=== PATIENT | male | born 1965 | race Caucasian/White ===

== ENCOUNTER 2018-04-15 13:42 | Observation (INO) | payer OTHER ==
[2018-04-15] MEDS ORDERED: HYDROmorphone INJ* 2 MG/ML CARPUJECT SYRINGE IV SLOW PU ONE (14:37)
[2018-04-15] MEDS ORDERED: Iohexol 350* (CONTRAST) 500 ML MDV IV ONE (14:44)
--- NOTE | 2018-04-15 15:24 | RAD ---
Indication: Chest pain. Single frontal view of the chest performed at 1500 hours was reviewed. No prior study is available for comparison.. No mediastinal shift is noted. Heart is of normal size and configuration. Lung alfaro appear clear. IMPRESSION: NO ACTIVE CARDIOPULMONARY DISEASE IS NOTED.
[2018-04-15 15:40] LABS: Hematocrit 31 % (42-52); Hemoglobin 9.9 g/dl (14.0-18.0); Mean Corpuscular HGB Conc 32 g/dl (31-36); Mean Corpuscular Hemoglobin 26 pg (27-31); Mean Corpuscular Volume 81 fL (80-94); Mean Platelet Volume 9.1 um3 (7.4-10.4); Platelet Count 440 10^3/ul (150-450); Red Blood Count 3.78 10^6/ul (4.00-5.40); Red Cell Distribution Width 22 % (10.5-15); White Blood Count 6.6 10^3/ul (3.5-10.8)
--- NOTE | 2018-04-15 15:55 | RAD ---
INDICATION: Chest pain. Short of breath. Evaluate for pulmonary embolus. COMPARISON: Chest x-ray 2017; CTA chest April 10, 2018; venous duplex examination April 10, 2018 TECHNIQUE: Axial source images were obtained from the thoracic inlet to the hemidiaphragms following administration of [address] angiographic technique was utilized. Coronal and sagittal reconstructed images were acquired. CHEST FINDINGS: Neck/thyroid: The visualized neck to include the thyroid appear normal. Chest wall: There are no acute abnormalities of the bony thorax or chest wall. There is no supraclavicular, infraclavicular, or axillary lymphadenopathy. Lungs : There are no pulmonary parenchymal masses or infiltrates. The pulmonary interstitium appears normal. There are no endobronchial lesions. Cardiomediastinal structures: There is no CT evidence of acute pulmonary embolic disease. The heart is normal in size. There is no pericardial effusion. There is no evidence of aortic aneurysm or dissection. There is no mediastinal or hilar adenopathy. The esophagus appears normal. Pleura : There are no pleural-based masses or effusions. Other: None. IMPRESSION: NO CT EVIDENCE OF ACUTE PULMONARY EMBOLIC DISEASE. LUNGS CLEAR.
[2018-04-15 16:04] LABS: EGFR Non-African American 87.9 (>60)
[2018-04-15 16:08] LABS: ABS Neutrophils 3.5 10^3/ul (1.5-7.7); Monocytes % 7 % (0-7)
[2018-04-15] MEDS ORDERED: oxyCODONE/Acetamin 5/325 MG* TAB PO ONE (17:09)
[2018-04-15] MEDS ORDERED: Al Hydrox/Mg Hydrox/Simet LIQ* 30 ML UDC PO PRN (17:14)
[2018-04-15] MEDS ORDERED: Magnesium Hydroxide LIQ* 30 ML UDC PO PRN (17:14)
[2018-04-15] MEDS ORDERED: Ondansetron 40 MG VIAL* 2 MG/ML 20 ML VIAL IV PRN (17:14)
[2018-04-15] MEDS ORDERED: Acetaminophen TAB* 325 MG PO PRN (17:14)
[2018-04-15] MEDS ORDERED: Albuterol 2.5 MG/3 ML NEB.SOL* (0.083%) INH PRN (17:14)
[2018-04-15] MEDS ORDERED: NS 0.9% 1000 ML* 1,000 ML IV SCH (17:15)
[2018-04-15] MEDS ORDERED: Nitroglycerin TAB 0.4 MG* 0.4 MG TAB SL PRN (17:23)
[2018-04-15] MEDS: Morphine VIAL* 4 MG/ML VIAL (1 ml vial) IV PRN ×3 (18:40→23:16)
[2018-04-15] MEDS: oxyCODONE/Acetamin 5/325 MG* TAB PO PRN (23:07)
--- NOTE | 2018-04-15 23:10 | HP ---
ADMISSION HISTORY AND PHYSICAL: DATE OF ADMISSION: 04/15/18 PATIENT OF: Dr. Ishmael Irvin. ATTENDING HOSPITALIST: Ishmael Irvin MD.* (DICTATED BY BONY STEIN) CHIEF COMPLAINT: Chest pain. HISTORY OF PRESENT ILLNESS: Mr. Alicia is a 52-year-old gentleman with past medical history significant for coronary artery disease, DVT, for which he has been treated with Lovenox as well as history of cardiac catheterization with two stents placed back in 2013, who was [place] [facility] [place] at the [facility] facility accompanied by two guards with a chief complaint of chest pain that started a few days ago. The patient notes that his chest pain was intermittent, feels more like squeezing tightness of the chest reaching up to 8/10 in severity, not associated with movement and reports no associated nausea, vomiting, diaphoresis. The patient was seen in the emergency room back on 04/10/18 with similar complaints. He also notes bilateral lower extremity swelling with recent diagnosis of right lower extremity DVT, for which he was started on Lovenox; however, it was not available at his correction facility and he presented to the ED for possible admission for treatment of DVT. Phone calls were made and verification was given to give the patient Lovenox at his correction facility, for which he was discharged back on the 04/10/18. He returned today with complaints of persistent chest pain on and off for the past few days. He has multiple risk factors including history of coronary artery disease, for which he had two stents placed after catheterization that was done in [place] back in 2013. The patient unfortunately have got no followup or any cardiac evaluation since. Given his multiple risk factors as well as his intermittent chest pain, we were asked to see the patient for evaluation and to discuss possible admission to telemetry for a cardiac workup tomorrow. At the time of admission, he notes that his chest pain has gotten better after he took some Percocet in the ED. He denies any weakness, dizziness, palpitation, headache, syncope or any other associated symptoms. PAST MEDICAL HISTORY: As mentioned above, significant for coronary artery disease, for which he had cardiac catheterization with two stents placed back in 2013. He also has history of multiple injuries to the bilateral shoulders for which he had surgery on both sides and currently has right humeral head fracture. He also has history of right lower extremity DVT, which is currently being treated with Lovenox. PAST SURGICAL HISTORY: Significant for bilateral shoulder repair as well as cardiac catheterization with two stents placement. He also has bilateral knee arthroscopies with meniscus repair in the past. CURRENT MEDICATIONS: His medications at the correction facility include: 1. Tylenol 650 mg p.o. q.6 hours p.r.n. for fever or pain. 2. Aspirin 81 mg p.o. daily. 3. Lovenox 80 mg subcu daily. 4. Omeprazole 20 mg p.o. daily. 5. I see Coumadin as current medication on his list; however, the patient denies taking any Coumadin at any time in the past few months. ALLERGIES: He is allergic to KETOROLAC. FAMILY HISTORY: Significant for coronary artery disease with history of NM in both father and uncle. SOCIAL HISTORY: The patient is a nonsmoker. Denies alcohol intake. He is originally from [facility] and currently, he is incarcerated in a correction facility. He would like to be full code. REVIEW OF SYSTEMS: See HPI, otherwise 14-point review of systems were reviewed and otherwise negative. PHYSICAL EXAMINATION GENERAL: He is a healthy-appearing, middle-aged gentleman, appears comfortable , and in no acute distress or discomfort at the time of admission. VITAL SIGNS: Revealed blood pressure of 109/64, temperature of 98.4, pulse of 75, respirations of 15, and O2 sats of 98% on room air. HEENT: Head is normocephalic, atraumatic. Sclerae anicteric. PERRLA. EOMs intact. Oropharynx is pink and moist. NECK: Supple. Trachea midline. No cervical adenopathy, thyromegaly, or JVD. LUNGS: Clear to auscultation bilaterally. HEART: Regular rate and rhythm. Normal S1 and S2 without rubs, murmurs, or gallops. BACK: With normal curvature. No CVA tenderness. ABDOMEN: Soft, nontender, and nondistended. No hernias, masses, or hepatosplenomegaly. EXTREMITIES: Without cyanosis, clubbing, or edema. There is bilateral calf tenderness noted on exam; however, the circumference of both calves appears to be equal by inspection. There is no evidence of cellulitis. There is pedal pulse bilaterally. NEUROLOGIC: He is awake, alert, and oriented x3. Neurologic exam is grossly normal. RECTAL: Exam deferred at this time. LABORATORY DATA: CBC with white count of 6000, hemoglobin 9.9, hematocrit 31, and platelets of 440. Chemistry panel with sodium of 138, potassium 4.8, chloride 104, CO2 of 26, BUN of 19, and creatinine of 0.9. His glucose is 103. LFTs essentially within normal limits. EKG repeated today and compared to a previous study on the 04/10/[address] changes or STEMI. Chest x-ray with no acute changes noted. Given his history of DVT, CTA of the chest was done and revealed no evidence of pulmonary embolism. ASSESSMENT: A 52-year-old gentleman with past medical history significant for coronary artery disease with previous cardiac catheterization and two stents placement in 2013, who returned to the emergency room with complaints of intermittent chest pain for the past few days with known history of deep vein thrombosis, for which he has been treated with subcutaneous Lovenox injection. PLAN AND RECOMMENDATIONS: 1. Chest pain. The patient has multiple risk factors including prior history of coronary artery disease, strong family history of myocardial infarction and his current history of deep vein thrombosis as well for which he has been treated and he showed no evidence of ST changes on current EKG; however, he had no cardiac workup since his cardiac catheterization back in 2013. Recommendations were for him to be admitted to telemetry for observation, trending troponins, repeat EKG in the morning. I will also obtain an echocardiogram as well as nuclear stress test to see if there was any evidence of myocardial ischemia. He appears to be stable at the time of admission and his pain was well controlled. 2. Deep vein thrombosis. We will continue the patient on his Lovenox 80 mg subcu daily. 3. Coronary artery disease. The patient is currently on aspirin 81 mg and his blood pressure appears to be stable. We will question if he needs to be started on a low dose of beta-enrique, but I would defer that at this time, definitely to consider it upon discharge if seem appropriate. 4. DVT prophylaxis. The patient is currently on Lovenox for treatment of active deep vein thrombosis. 5. Code status. He is a full code. DISPOSITION: Admit to telemetry for observation, trending troponins, transesophageal echocardiogram, and nuclear stress test in the morning to rule out acute coronary syndrome. TIME SPENT: I spent approximately 60 minutes admitting this patient with greater than 50% was spent on taking history and performing physical exam. I have discussed the case with my attending, Dr. Irvin, who agrees to plans of care. BONY STEIN [id number]/[facility] #: [id number] MTDChapin
[2018-04-16] MEDS: Morphine VIAL* 4 MG/ML VIAL (1 ml vial) IV PRN ×3 (00:59→06:48)
[2018-04-16] MEDS: oxyCODONE/Acetamin 5/325 MG* TAB PO PRN ×2 (04:44→20:53)
[2018-04-16 06:26] LABS: ABS Basophils 0.1 10^3/ul (0-0.2); ABS Eosinophils 0.3 10^3/ul (0-0.6); ABS Lymphocytes 2.3 10^3/ul (1.0-4.8); ABS Monocytes 1.1 10^3/ul (0-0.8); ABS Neutrophils 3.7 10^3/ul (1.5-7.7); ABS Nucleated RBC 0 10^3/ul; Eosinophil % 3.8 % (0-6); Hematocrit 31 % (42-52); Hemoglobin 10.1 g/dl (14.0-18.0); Lymphocyte % 30.6 % (25-47); Mean Corpuscular HGB Conc 32 g/dl (31-36); Mean Corpuscular Hemoglobin 26 pg (27-31); Mean Corpuscular Volume 81 fL (80-94); Mean Platelet Volume 8.9 um3 (7.4-10.4); Nucleated Red Blood Cells % 0.3; Platelet Count 413 10^3/ul (150-450); Red Blood Count 3.86 10^6/ul (4.00-5.40); Red Cell Distribution Width 22 % (10.5-15); White Blood Count 7.4 10^3/ul (3.5-10.8)
[2018-04-16 06:42] LABS: EGFR Non-African American 67.6 (>60)
[2018-04-16] MEDS: Aspirin 81 mg CHEW TAB* 81 MG TAB.CHEW PO SCH (08:32)
[2018-04-16] MEDS: Omeprazole CAP* 20 MG PO SCH (08:32)
[2018-04-16] MEDS ORDERED: Enoxaparin(*) 80 MG/0.8 ML SYR SUBCUT SCH (09:00)
--- NOTE | 2018-04-16 09:00 | PN ---
Subjective Date of Service: 04/16/18 Interval History: Patient reports he feels " a little better with less chest pain", he reports he has a hx of chronic CP. No reproducible pain. Only pain medication makes it better. Denies SOB/Nausea/Diaphoresis. Reports pain in his LE d/t DVTs. 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 He reports he has never seen a Manager Filter. No Hx of PE. No hx of colonoscopy. Objective Active Medications: Acetaminophen (Tylenol Tab*) 650 mg PO Q6H PRN PRN Reason: PAIN Al Hydrox/Mg Hydrox/Simethicone (Maalox Plus*) 30 ml PO Q6H PRN PRN Reason: INDIGESTION Albuterol (Ventolin 2.5 Mg/3 Ml Neb.Yolanda*) 2.5 mg INH RT.[id number] AWAKE PRN PRN Reason: sob/wheezing Aspirin (Aspirin 81 Mg Chew Tab*) 81 mg PO DAILY [facility] Last Admin: 04/16/18 08:32 Dose: 81 mg Chlorpromazine HCl (Thorazine Tab*) 50 mg PO QAM [facility] Chlorpromazine HCl (Thorazine Tab*) 75 mg PO QPM [facility] Divalproex Sodium (Depakote Er Tab(*)) 500 mg PO QAM [facility] Divalproex Sodium (Depakote Er Tab(*)) 750 mg PO QPM [facility] Enoxaparin Sodium (Lovenox(*)) 80 mg SUBCUT DAILY [facility] Magnesium Hydroxide (Milk Of Magnesia Liq*) 30 ml PO Q4H PRN PRN Reason: CONSTIPATION Nitroglycerin (Nitroglycerin Tab 0.4 Mg*) 0.4 mg SL Q5M PRN PRN Reason: ANGINA Omeprazole (Prilosec Cap*) 20 mg PO DAILY [facility] Last Admin: 04/16/18 08:32 Dose: 20 mg Ondansetron HCl (Zofran 40 Mg Vial*) 4 mg IV Q4H PRN PRN Reason: NAUSEA/VOMITING Paroxetine HCl (Paxil Tab*) 40 mg PO QAM [facility] Vital Signs - 8 hr 04/16/18 04/16/18 04/16/18 00:59 01:10 02:00 Temperature Pulse Rate Respiratory 20 16 16 Rate Blood Pressure (mmHg) O2 Sat by Pulse Oximetry 04/16/18 04/16/18 04/16/18 03:15 04:40 04:44 Temperature 98.4 F Pulse Rate 74 Respiratory 20 20 16 Rate Blood Pressure 105/61 (mmHg) O2 Sat by Pulse 97 Oximetry 04/16/18 04/16/18 04/16/18 06:04 06:48 06:51 Temperature Pulse Rate Respiratory 20 20 20 Rate Blood Pressure (mmHg) O2 Sat by Pulse Oximetry 04/16/18 04/16/18 08:11 08:42 Temperature 97.8 F Pulse Rate 63 Respiratory 20 20 Rate Blood Pressure 101/65 (mmHg) O2 Sat by Pulse 98 Oximetry Oxygen Devices in Use Now: None Appearance: well developed 52 yo male A+O x3 in NAD Eyes: No Scleral Icterus, PERRLA Ears/Nose/Mouth/Throat: NL Teeth, Lips, Gums, Mucous Membranes Moist Neck: NL Appearance and Movements; NL JVP Respiratory: Symmetrical Chest Expansion and Respiratory Effort, Clear to Auscultation Cardiovascular: NL Sounds; No Murmurs; No JVD, RRR, No Edema Abdominal: NL Sounds; No Tenderness; No Distention Extremities: No Clubbing, Cyanosis, - - trace edema to LE b/l Lines/Tubes/Other Access: Clean, Dry and Intact Peripheral IV Nutrition: Taking PO's Result Diagrams: 04/16/18 06:13 04/16/18 06:13 Assess/Plan/Problems-Billing Assessment: 52 yo male from [place] with a PMH of CAD s/p stents 2013, recent dx of DVT on lovenox, significant psych hx who presented to the ER on 04/15 with c/o chest pain starting a few days ago, with negative troponins - Patient Problems (1) Chest pain Comment: - Improving. Unclear etiology. Hx of chronic chest pain. - Negative Troponins - Cardiac Nuc Stress test "low risk" but showing an area of ischemia - discussed with Dr. Loja who reviewed the imaging and echo which show a corrleating area that is very very small on the paex of ischemia, most likely old MO. Recommend for medical treatment only. Will start the patient on small dose of metoprolol and continue to monitor on tele. Pt has hx of soft BPs. If doesnt tolerate BB could try low dose norvasc. - Echo wnls (2) CAD (coronary artery disease) Comment: - Hx of CAD with stents in 2014 - Only on ASA. 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 - Now recent dx of "extensive B/L DVT's" - it is unclear by the notes why the patient is only on once a day dosing of his lovenox. Discussed with REGULATOR ASSEMBLER at the facility who was unaware he should be on BID and was DC's from ER in [place] on daily dosing. No hx of bleeding known. She did just start him on coumadin a few days ago. - will need lifelong anticoagulation - spoke to Heme over the phone, no need for hypercoagulable workup as the treatment wont change, he will require life long anticoagualtion for unprovoked DVT. Recommended age appropriate cancer screenings, which patient has not had a colonoscopy. - CTA - no PE - INR subtherapuetic, Switch Lovenox to BID and restart coumadin - Daily INR - prn percocet for pain in legs (4) History of psychiatric disorder Comment: - per 5-points nursing staff significant psych hx with aggressive behavior, hx has of stealing pens and swallowing them. He was appropriate on exam today. (5) DVT prophylaxis Comment: - lovenox bridge to coumadin (6) Full code status Status and Disposition: Inpatient. Most likely DC tomorrow. patient will be monitored on telemetry overnight to start new cardiac medication, if tolerate ok to DC tomorrow.
[2018-04-16] MEDS: Acetaminophen TAB* 325 MG PO PRN ×2 (09:12→17:23)
--- NOTE | 2018-04-16 09:34 | ECHO ---
Patient: TRU DAY [id number] [facility] Rec#: [id number] : 1965 Date: 04/16/2018 Age: 52y Height: 173 cm / 68.1 in Weight: 84 kg / 185.1 lbs Sex: M BSA: 2 Room#: 453 Admit Date#: 04/15/2018 Type: Inpatient Referring: Josse Mcqueen Reading: Dora Loja MD Can Sealer: Yamilet Langford RN RDCS Transthoracic Echocardiogram Indication: Chest pain BP: 105/61 HR: 65 Rhythm: NSR Findings History: CAD, PCI in 2013, DVT. Technical Comments: The study quality is fair. Completed at 0900. Left Ventricle: The left ventricular chamber size is normal. There is no left ventricular hypertrophy. Global left ventricular wall motion and contractility are within normal limits. Left ventricular systolic function is at the lower limits of normal. Focal area, small, of relative hypokinesis of the mid posterior wall seen on 3 chamber view only, not confirmed on short axis view. The estimated ejection fraction is 50-55%. Normal left ventricular diastolic filling is observed. Left Atrium: The left atrial chamber size is normal. Right Ventricle: The right ventricular cavity size is normal. The right ventricular global systolic function is normal. Right Atrium: The right atrial cavity size is normal. Aortic Valve: The aortic valve is trileaflet. The aortic valve leaflets are mildly thickened. There is aortic annular calcification. There is a trace of aortic regurgitation. There is no evidence of aortic stenosis. Mitral Valve: The mitral valve leaflets are mildly thickened. There is trace to mild mitral regurgitation. There is no evidence of mitral stenosis. Tricuspid Valve: The tricuspid valve leaflets are normal. There is trace to mild tricuspid regurgitation. Unable to estimate the right ventricular systolic pressure. There is no tricuspid stenosis. Pulmonic Valve: The pulmonic valve appears normal. There is trace to mild pulmonic regurgitation. There is no pulmonic stenosis. Pericardium: There is no significant pericardial effusion. Aorta: There is no dilatation of the ascending aorta. There is no dilatation of the aortic arch. There is no dilation of the aortic root. Pulmonary Artery: The main pulmonary artery appears normal. Venous: The inferior vena cava appears normal in size. There is a greater than 50% respiratory change in the inferior vena cava dimension. Conclusions The left ventricular chamber size is normal. Global left ventricular wall motion and contractility are within normal limits, see text for focal posterior wall focal hypokinesis, differential of ischemic induced vs. papillary muscle. The estimated ejection fraction is 50-55%. Normal left ventricular diastolic filling is observed. The right ventricular global systolic function is normal. There is trace to mild mitral regurgitation. There is trace to mild tricuspid regurgitation. No prior echo to compare. Measurements Name Value Normal Range RVDdMajor (2D) 2.9 cm (2.2 - 4.4) RAd ISD 4CH 4.4 cm (3.4 - 4.9) RA (A4C)W 3.5 cm (2.9 - 4.6) IVSd (2D) 1 cm (0.6 - 1) LVPWd (2D) 1 cm (0.6 - 1) LVIDd (2D) 4.9 cm (3.6 - 5.4) LVIDs (2D) 3.4 cm - LV FS (2D) 31 % (25 - 45) Aortic Annulus 2.2 cm (1.4 - 2.6) Ao root diameter (2D) 3.2 cm (2.1 - 3.5) Ascending Ao 3.3 cm (2.1 - 3.4) Aortic arch 2.5 cm (1.8 - 3.4) LA dimension (AP) 2D 3 cm (2.3 - 3.8) LAd ISD 4CH 3.9 cm (2.9 - 5.3) LA ISD 4CH W 4.2 cm (2.5 - 4.5) Name Value Normal Range LA ESV SP 4CH (A/L) 38 ml - LA ESV SP 2CH (A/L) 40 ml - LA ESV BP (A/L) 39 ml - LA ESV BP (A/L) index 20 ml/m2 - LA ESV SP 4CH (MOD) 33 ml - LA ESV SP 2CH (MOD) 36 ml - Name Value Normal Range MV E-wave Vmax 0.76 m/sec - MV deceleration time 205 msec - MV A-wave Vmax 0.64 m/sec - MV E:A ratio 1.2 ratio - LV septal e' Vmax 0.1 m/sec - LV lateral e' Vmax 0.13 m/sec - LV E:e' septal ratio 7.6 ratio - LV E:e' lateral ratio 5.9 ratio - Name Value Normal Range AV Vmax 1.2 m/sec - AV VTI 27.7 cm - AV peak gradient 6 mmHg - AV mean gradient 3 mmHg - LVOT Vmax 0.93 m/sec - LVOT VTI 17.6 cm - LVOT peak gradient 3 mmHg - LVOT mean gradient 2 mmHg - SHAY Vmax 0.75 m/sec - Name Value Normal Range IVC diameter 1.6 cm - Name Value Normal Range PV Vmax 0.8 m/sec -
[2018-04-16] MEDS ORDERED: Aminophylline IV* 25 MG/ML 10 ML VIAL ONE (09:57)
[2018-04-16] MEDS ORDERED: Regadenoson* 0.4 MG/5 ML SYRINGE ONE (09:57)
[2018-04-16] MEDS: chlorproMAZINE TAB* 50 MG PO SCH (11:41)
[2018-04-16] MEDS: Divalproex ER TAB(*) 500 MG PO SCH (11:41)
[2018-04-16] MEDS: PARoxetine HCL TAB* 40 MG PO SCH (11:41)
--- NOTE | 2018-04-16 11:59 | RAD ---
Edited for charges. INDICATION: Chest pain, shortness of breath, previous myocardial infarction. COMPARISON: No relevant prior exams available on the [facility] [place] for comparison. TECHNIQUE: 10.990 mCi of Tc-99m Myoview were administered IV. SPECT images of the heart were obtained. Later on the same day. Under the direction of Dr. Sousa, the patient was given an IV injection of a pharmacologic stress agent. Subsequently, the patient was given an IV injection of 25.700 mCi Tc-99m Myoview. SPECT images of the heart were obtained and a gated wall motion study was performed. FINDINGS: Gated wall motion images were obtained at stress and demonstrate mild inferior and septal hypokinesia greatest at the apical segments. The calculated left ventricular ejection fraction is 57 % at stress. Estimated LEFT ventricular end diastolic volume is 113 mL. TID 1.16. Very small region of decreased perfusion at the apex at stress with reversal at rest. No additional reversible or fixed myocardial perfusion defects. IMPRESSION: 1. Upper normal LEFT ventricular volume with mild hypokinesia at the apical regions of the septum and inferior wall. Normal range estimated LEFT ventricular ejection fraction. 2. Very small focus of stress-induced decreased perfusion at the apex with reversal at rest suspicious for ischemia. ASSESSMENT: Low risk based on nuclear portion. Based on imaging criteria from ACC/AHA 2002 Guideline Update for the Management of Patients With Chronic Stable Angina Table 23. Noninvasive Risk Stratification. MTDD
--- NOTE | 2018-04-16 12:08 | ED ---
Avi Pagan Angela, scribed for Sabino Kong MD on 04/15/18 at 1430 . HPI Chest Pain - HPI Summary HPI Summary: This pt is a 52 y/o male presenting to [facility] police from [facility] c/o chest pain and SOB since yesterday. Pt began to have chest pain yesterday and was checked at the [facility]. Pt notes his chest pain continued today and currently rates it 9/10 in severity. He states it is painful to breathe. Pt additionally reports bilateral LE swelling. He has a right humerus fracture for which he was supposed to follow up today at [facility]. Pt was in the ED at [facility] 6 days ago and had an US that showed bilateral DVT. PMHx includes TBI, CHF, s/p 2 stents, DVT (first blood clot in 2009). He is currently on Lovenox once a day for DVT diagnosed 1 week ago. Denies allergies to IV dye. Pt takes aspirin every morning. - History of Current Complaint Chief Complaint: EDChestPainROMI Time Seen by Provider: 04/15/18 14:10 Hx Obtained From: Patient Onset/Duration: Started Hours Ago, Still Present Timing: Lasting Hours Current Severity: Severe Pain Intensity: 9 Pain Scale Used: 0-10 Numeric Chest Pain Location: Diffuse Chest Pain Radiates: No Aggravating Factor(s): Nothing Alleviating Factor(s): Nothing Associated Signs and Symptoms: Positive: Chest Pain, Shortness of Breath, Swelling - in bilateral LE. Negative: Fever, Chills - Allergy/Home Medications Allergies/Adverse Reactions: Allergies Allergy/AdvReac Type Severity Reaction Status Date / Time ketorolac [From Toradol] Allergy Abdominal Verified 04/15/18 14:08 Pain Home Medications: Home Medications Acetaminophen TAB* [Tylenol TAB*] 650 mg PO Q6H PRN 04/15/18 [History Confirmed 04/15/18] Aspirin 81 mg CHEW TAB* [Aspirin Low Dose TAB*] 81 mg PO DAILY 04/15/18 [ History Confirmed 04/15/18] Enoxaparin(*) [Lovenox(*)] 80 mg SUBCUT DAILY 04/15/18 [History Confirmed ] Lactose-Reduced Food [Boost High Protein] 237 ml PO BID 04/15/18 [History Confirmed 04/15/18] Omeprazole CAP* [Prilosec CAP* 20 MG] 20 mg PO DAILY 04/15/18 [History Confirmed 04/15/18] Warfarin TAB(*) [Coumadin TAB(*)] 5 mg PO DAILY 04/15/18 [History Confirmed ] PMH/Surg Hx/FS Hx/Imm Hx Endocrine/Hematology History: Denies: Hx Diabetes Cardiovascular History: Reports: Hx Congestive Heart Failure, Hx Coronary Artery Disease, Hx Deep Vein Thrombosis Denies: Hx Hypertension Respiratory History: Reports: Hx Chronic Obstructive Pulmonary Disease (COPD), Hx Pulmonary Embolism Musculoskeletal History: Reports: Other Musculoskeletal History - fractured right humerus Neurological History: Reports: Other Neuro Impairments/Disorders - TBI - Surgical History Surgery Procedure, Year, and Place: [facility] Infectious Disease History: No Infectious Disease History: Denies: Traveled Outside the [place] in Last 30 Days - Family History Known Family History: Positive: Cardiac Disease - Father: triple bypass, Blood Disorder - PE - Social History Alcohol Use: None Substance Use Type: Reports: None Smoking Status (MU): Never Smoked Tobacco Review of Systems Negative: Fever, Chills Negative: Erythema Negative: Sore Throat Positive: Chest Pain Positive: Shortness Of Breath. Negative: Cough Negative: Abdominal Pain, Vomiting, Nausea Negative: dysuria, flank pain Positive: Edema - in bilateral LE. Negative: Myalgia Negative: Rash Neurological: Other - NEG: dizziness All Other Systems Reviewed And Are Negative: Yes Physical Exam - Summary Physical Exam Summary: Constitutional: Well-developed, Well-nourished, Alert. (-) Distressed Skin: Warm, Dry HENT: Normocephalic; Atraumatic Eyes: Conjunctiva normal Neck: Musculoskeletal ROM normal neck. (-) JVD, (-) Stridor, (-) Tracheal deviation Cardio: Rhythm regular, rate normal, Heart sounds normal; Intact distal pulses; The pedal pulses are 2+ and symmetric. Radial pulses are 2+ and symmetric. (-) Murmur Pulmonary/Chest wall: Effort normal. (-) Respiratory distress, (-) Wheezes, (-) Rales Abd: Soft, (-) Tenderness, (-) Distension, (-) Guarding, (-) Rebound Musculoskeletal: Bilateral leg swelling. Lymph: (-) Cervical adenopathy Neuro: Alert, Oriented x3 Psych: Mood and affect Normal Triage Information Reviewed: Yes Vital Signs On Initial Exam: Initial Vitals Temp Pulse Resp BP Pulse Ox 98.4 F 94 20 101/76 98 04/15/18 14:05 04/15/18 14:05 04/15/18 14:05 04/15/18 14:05 04/15/18 14:05 Vital Signs Reviewed: Yes Diagnostics - Vital Signs Vital Signs Temp Pulse Resp BP Pulse Ox 04/15/18 14:05 98.4 F 94 20 101/76 98 - Laboratory Result Diagrams: 04/15/18 15:19 04/15/18 15:19 Lab Statement: Any lab studies that have been ordered have been reviewed, and results considered in the medical decision making process. - Radiology Chest XR Xray Interpretation: No Acute Changes - IMPRESSION: No active cardiopulmonary disease is noted. Dr. Kong has reviewed this radiology report. Radiology Interpretation Completed By: Radiologist - CT CTA Chest CT Interpretation: No Acute Changes - IMPRESSION: No CT evidence of acute pulmonary embolic disease. Lungs clear. Dr. Kong has reviewed this radiology report. CT Interpretation Completed By: Radiologist - EKG 14:09 Cardiac Rate: NL - at 88 bpm EKG Rhythm: Sinus Rhythm EKG Interpretation: No STEMI. Chest Pain Course/Dx - Course Assessment/Plan: Pt is a 52 y/o male, with dx of DVT currently on Lovenox, presents with chest pain and SOB since yesterday. Pt began to have chest pain yesterday and was checked at the [facility]. Pt notes his chest pain continued today and currently rates it 9/10 in severity. He states it is painful to breathe. Pt additionally reports bilateral LE swelling. He has a right humerus fracture for which he was supposed to follow up today at [facility]. Chest XR shows no active cardiopulmonary disease is noted. CTA chest reveals no CT evidence of acute pulmonary embolic disease. Lungs clear. In the ED course the pt was given Dilaudid. Pt should receive provocative testing in the hospital, he was seen in the ED 4 days ago for chest pain and discharged. Risk factors includes CAD with stents. I discussed pt care with Dr. Irvin, hospitalist, who accepted the pt for admission. - Diagnoses Provider Diagnoses: Chest pain, unspecified - Provider Notifications Discussed Care Of Patient With: Ishmael Irvin Time Discussed With Above Provider: 16:10 Instructed by Provider To: Admit As Inpatient Discharge - Sign-Out/Discharge Documenting (check all that apply): Discharge/Admit/Transfer - Admit - Discharge Plan Condition: Stable Disposition: ADMITTED TO [facility] Referrals: No Primary Care Phys,NOPCP [Primary Care Provider] - The documentation as recorded by the Avi cortez Angela accurately reflects the service I personally performed and the decisions made by me, Sabino Kong MD.
[2018-04-16 16:40] LABS: INR 0.97 (0.77-1.02)
[2018-04-16] MEDS: Warfarin TAB(*) 5 MG PO SCH (17:23)
[2018-04-16] MEDS: Divalproex ER TAB(*) 250 MG PO SCH (17:24)
[2018-04-16] MEDS: chlorproMAZINE TAB* 25 MG PO SCH (17:24)
[2018-04-16] MEDS ORDERED: Metoprolol Tartrate TAB* 25 MG PO ONE (20:04)
[2018-04-16] MEDS: Enoxaparin(*) 80 MG/0.8 ML SYR SUBCUT SCH (20:54)
[2018-04-17 06:54] LABS: INR 1.04 (0.77-1.02)
[2018-04-17 07:05] LABS: EGFR Non-African American 74.4 (>60)
[2018-04-17] MEDS: chlorproMAZINE TAB* 50 MG PO SCH (07:28)
[2018-04-17] MEDS: Aspirin 81 mg CHEW TAB* 81 MG TAB.CHEW PO SCH (07:28)
[2018-04-17] MEDS: PARoxetine HCL TAB* 40 MG PO SCH (07:30)
[2018-04-17] MEDS: Omeprazole CAP* 20 MG PO SCH (07:30)
[2018-04-17] MEDS: Enoxaparin(*) 80 MG/0.8 ML SYR SUBCUT SCH (07:30)
[2018-04-17] MEDS: Divalproex ER TAB(*) 500 MG PO SCH (07:30)
[2018-04-17] MEDS ORDERED: Metoprolol Tartrate TAB* 25 MG PO SCH (09:00)
--- NOTE | 2018-04-17 15:22 | PN ---
Subjective Date of Service: 04/17/18 Interval History: Mr. Alicia reports that he continues to have some chest pain and ankle pain. He notes that he has had chronic issues with what he describes as angina. He denies other complaint including cough, shortness of breath, nausea, or abdominal pain. Objective Active Medications: Acetaminophen (Tylenol Tab*) 650 mg PO Q6H PRN Al Hydrox/Mg Hydrox/Simethicone (Maalox Plus*) 30 ml PO Q6H PRN Albuterol (Ventolin 2.5 Mg/3 Ml Neb.Yolanda*) 2.5 mg INH [id number] AWAKE PRN Amlodipine Besylate (Norvasc Tab*) 2.5 mg PO DAILY [facility] Aspirin (Aspirin 81 Mg Chew Tab*) 81 mg PO DAILY [facility] Chlorpromazine HCl (Thorazine Tab*) 50 mg PO QAM [facility] Chlorpromazine HCl (Thorazine Tab*) 75 mg PO QPM [facility] Divalproex Sodium (Depakote Er Tab(*)) 500 mg PO QAM [facility] Divalproex Sodium (Depakote Er Tab(*)) 750 mg PO QPM [facility] Enoxaparin Sodium (Lovenox(*)) 80 mg SUBCUT Q12H [facility] Magnesium Hydroxide (Milk Of Magnagueda Liq*) 30 ml PO Q4H PRN Nitroglycerin (Nitroglycerin Tab 0.4 Mg*) 0.4 mg SL Q5M PRN Omeprazole (Prilosec Cap*) 20 mg PO DAILY [facility] Ondansetron HCl (Zofran 40 Mg Vial*) 4 mg IV Q4H PRN Oxycodone/Acetaminophen (Percocet 5/325 Tab*) 1 tab PO Q6H PRN Paroxetine HCl (Paxil Tab*) 40 mg PO QAM [facility] Pharmacy Profile Note (Coumadin Daily Reminder*) 0 note FOLLOW UP 1700 [facility] Warfarin Sodium (Coumadin Tab(*)) 5 mg PO DAILY@1700 [facility]; Protocol Vital Signs: Temp Pulse Resp BP Pulse Ox 97.9 F 60 16 90/59 97 04/17/18 11:44 04/17/18 11:44 04/17/18 11:44 04/17/18 11:44 04/17/18 11:44 Oxygen Devices in Use Now: None Appearance: Male lying in bed in NAD Eyes: No Scleral Icterus Ears/Nose/Mouth/Throat: Mucous Membranes Moist Neck: Trachea Midline Respiratory: Symmetrical Chest Expansion and Respiratory Effort, Clear to Auscultation Cardiovascular: NL Sounds; No Murmurs; No JVD, No Edema Abdominal: NL Sounds; No Tenderness; No Distention Lymphatic: No Cervical Adenopathy Extremities: No Edema Skin: No Rash or Ulcers Neurological: Alert and Oriented x 3, NL Muscle Strength and Tone Nutrition: Taking PO's Result Diagrams: 04/16/18 06:13 04/17/18 06:29 Assess/Plan/Problems-Billing Assessment: 52 yo male from [facility] with a PMH of CAD s/p stents 2013, recent dx of DVT on lovenox, significant psych hx who presented to the ER on 04/15 with c/o chest pain starting a few days ago, with negative troponins - Patient Problems (1) Chest pain Comment: - Unclear etiology. Hx of chronic chest pain. - Negative Troponins - Cardiac Nuc Stress test "low risk" but showing an area of ischemia - discussed with Dr. Loja who reviewed the imaging and echo which show a corrleating area that is very very small on the apex of ischemia, most likely old TX. Recommend for medical treatment only. Did not tolerate metoprolol, due to low BP - Echo wnls (2) History of DVT (deep vein thrombosis) Comment: - Hx of DVT "many years ago" after TBI and was immobile, was tx with coumadin and has been off for many years. - Now recent dx of "extensive B/L DVT's" - it is unclear by the notes why the patient is only on once a day dosing of his lovenox. Discussed with PHP PROGRAMMER at the facility who was unaware he should be on BID and was DC's from ER in [place] on daily dosing. No hx of bleeding known. She did just start him on coumadin a few days ago. - will need lifelong anticoagulation - spoke to Heme over the phone, no need for hypercoagulable workup as the treatment wont change, he will require life long anticoagualtion for unprovoked DVT. Recommended age appropriate cancer screenings, which patient has not had a colonoscopy. - CTA - no PE - INR subtherapuetic, Switch Lovenox to BID and restart coumadin - Daily INR - prn percocet for pain in legs (3) History of psychiatric disorder Comment: - per [facility] nursing staff significant psych hx with aggressive behavior, hx has of stealing pens and swallowing them. (4) CAD (coronary artery disease) Comment: - Hx of CAD with stents in 2013 - Only on ASA. (5) DVT prophylaxis Comment: - lovenox bridge to coumadin (6) Full code status Status and Disposition: Discharge
[2018-04-17 15:58] VITALS: BP 103/68
[2018-04-17] MEDS: Warfarin TAB(*) 5 MG PO SCH (16:29)
[2018-04-17] MEDS: oxyCODONE/Acetamin 5/325 MG* TAB PO PRN (16:33)
[2018-04-17] MEDS: chlorproMAZINE TAB* 25 MG PO SCH (18:19)
[2018-04-17] MEDS: Divalproex ER TAB(*) 250 MG PO SCH (18:19)
--- NOTE | 2018-04-18 04:54 | DS ---
CC: Providers at [facility] * HOSPITAL MEDICINE DISCHARGE SUMMARY: DATE OF ADMISSION: 07/16/18 DATE OF DISCHARGE: 04/17/18 ATTENDING PHYSICIAN: Dr. Ishmael Irvin * (dictation provided by Livia Coughlin NP ) PRIMARY DIAGNOSIS: Chest pain, atypical. SECONDARY DIAGNOSES: 1. History of deep vein thrombosis on Lovenox therapy, unprovoked. 2. Obstructive coronary artery disease with 2 stents placed in 2013. 3. History of bilateral shoulder repair. 4. History of bilateral knee arthroscopies. MEDICATIONS: 1. Divalproex ER 750 mg p.o. q.p.m. and 500 mg p.o. q.a.m. 2. Thorazine 75 mg p.o. q.p.m. 3. Paxil 40 mg p.o. q.a.m. 4. Thorazine 50 mg p.o. q.a.m. 5. Boost 237 mL p.o. b.i.d. 6. Warfarin 5 mg p.o. daily. 7. Omeprazole 20 mg p.o. daily. 8. Aspirin 81 mg p.o. daily. 9. Tylenol 650 mg p.o. q.6 hours p.r.n. 10. Lovenox 80 mg subcutaneously q.12 hours. HOSPITAL COURSE: Mr. Alicia is a 52-year-old male with a past medical history of coronary artery disease with stents x2 as well as unprovoked DVTs on Lovenox therapy, who presented to the hospital on 04/15/18 with concern for chest pain. Please see dictated H and P from Josse Mcqueen for complete details. In brief, the patient reported that he had chest pain that started a few days prior to admission. He describe it as squeezing tightness in the center of his chest. It was not associated with movement, nor nausea, vomiting , or diaphoresis. Mr. Alicia had a chest x-ray which showed no acute intrathoracic process. He had a chest thorax CTA which showed "no CT evidence of acute pulmonary embolic disease. Lungs are clear." He had an EKG which showed sinus rhythm and nonspecific intraventricular conduction delay and no evidence of ischemia. He had troponins all of which were negative. Remainder of his workup was notable for anemia with the hemoglobin of 9.6. Mr. Alicia is noted to have a nuclear medicine stress test which is read as follows, "Upper normal left ventricular volume with mild hyperkinesia at the apical regions of the septum and inferior wall, normal range estimated left ventricular ejection fraction. Very small focus of stress induced decreased perfusion at the apex with the reversal at rest, suspicious for ischemia low risk." He had a transthoracic echocardiogram which is read as follows, the left ventricular chamber size is normal. Global left ventricular wall motion and contractility were within normal limits, see text for focal posterior wall focus hypokinesis. Differential of ischemic induced versus papillary muscle. Normal left ventricular diastolic filling is observed." For these abnormalities noted, we did review the case with Dr. Loaj from Cardiology and she reviewed the images. She felt that this was not reflective of any ischemia and likely more reflective of prior ID and recommended medical management. The patient is being discharged on aspirin but was unable to tolerate any beta-blockers or other blood pressure medications due to relatively low BP, running around 90 to 100. Mr. Alicia has been noted to have anemia. I see from records that were sent to the hospital that he had a hemoglobin of 9.1 on 04/08/18, here on 04/10/18, his hemoglobin was 9.6; on arrival of 04/15/18, it was 9.9 and then on 04/16/18 , it was 10.1. Clearly, it is stabilizing and increasing. He has no evidence of bleeding. He has no blood per rectum. He describes the dark stool at times. I recommended doing a rectal exam, but he states that he had a rectal exam with stool sample sent at the [facility] and that it was negative. Mr. Alicia would benefit from a colonoscopy for colon cancer screening as he is 52 years old and has had unprovoked DVTs. He would also benefit from this as he does have this explained anemia which is normocytic. Mr. Alicia is medically stable for discharge to [facility], again with recommendations for followup and assessment of anemia specifically with colonoscopy. DISPOSITION: To [facility]. DIET: Low fat, low salt. ACTIVITY: As tolerated. FOLLOWUP PLANS: 1. Please follow up with the providers at [facility] for colonoscopy. 2. Please follow up with [facility] providers regarding anemia. 3. Please follow up with [facility] providers regarding continued monitoring of INR and bridging of Lovenox therapy. TIME SPENT: Approximately 60 minutes were spent on the discharge of this patient, more than half the time was spent with the patient at the bedside reviewing the events leading up to and during this hospitalization, performing the physical examination, and reviewing my plan of care. LIIVA COUGHLIN NP [id number]/CPS #: [id number] RYAN
[2018-04-18] MEDS ORDERED: amLODIPine TAB* 5 MG PO SCH (09:00)
== END 2018-04-17 18:45 | disposition home or self-care (01) ==
LOC: ED 13:42 → MEDTELE 17:14 → EEVIPCON 17:14
PROVIDERS: ADMIT Internal Medicine; ATTEND Internal Medicine
DX: R07.89 Other chest pain (principal); Z86.718 Personal history of other venous thrombosis and embolism; Z79.01 Long term (current) use of anticoagulants; I25.10 Atherosclerotic heart disease of native coronary artery without angina pectoris; Z95.5 Presence of coronary angioplasty implant and graft; Z79.899 Other long term (current) drug therapy; Z79.82 Long term (current) use of aspirin; Z88.8 Allergy status to other drugs, medicaments and biological substances; R06.02 Shortness of breath; S42.301D Unspecified fracture of shaft of humerus, right arm, subsequent encounter for fracture with routine healing; X58.XXXD Exposure to other specified factors, subsequent encounter; R94.31 Abnormal electrocardiogram [ECG] [EKG]
CPT/HCPCS: 36415; 71045; 71275; 78452; 80048; 80053; 80061; 83605; 84484; 85025; 85610; 87040; 93005; 93017; 93306; 96374; 96375; 96376; 99284; A9270-GY; A9502; G0378; J0280; J1170; J1650; J2270; J2785; Q9967

== ENCOUNTER 2018-05-20 11:32 | Inpatient (IN) | payer OTHER ==
[2018-05-20] MEDS ORDERED: NS 0.9% 1000 ML* 1,000 ML IV ONE ×2 (11:41→13:31)
--- NOTE | 2018-05-20 11:47 | ED ---
Lower Extremity - HPI Summary HPI Summary: This is dana Reeves documenting for attending Angelo Adams MD. This patient is a 52 year old M BIBA to ED with a chief complaint of bilateral leg pain since about 1 week ago. The CC is described as with swelling and erythema in his feet radiating into his calves. The patient rates the pain 8/10 in severity. Symptoms aggravated by nothing. Symptoms alleviated by nothing. Patient reports CP and SOB on exertion. PMHx of recent dx of DVT. - History of Current Complaint Stated Complaint: CHEST PAIN Time Seen by Provider: 05/20/18 11:35 Hx Obtained From: Patient Onset of Pain: Immediate, Days - since about 1 week ago Onset/Duration: Weeks - since about 1 week ago Severity Initially: Severe Severity Currently: Severe Pain Intensity: 8 Pain Scale Used: 0-10 Numeric Timing: Constant, Lasting Weeks - since about 1 week ago Location: Is Discrete @ - bilateral leg pain (in his feet, radiating up to his calves) Aggravating Factor(s): Other - bilateral leg pain aggravated by nothing but SOB is aggravated by exertion Alleviating Factor(s): Nothing - Allergies/Home Medications Allergies/Adverse Reactions: Allergies Allergy/AdvReac Type Severity Reaction Status Date / Time ketorolac [From Toradol] Allergy Abdominal Verified 04/15/18 14:08 Pain PMH/Surg Hx/FS Hx/Imm Hx Endocrine/Hematology History: Reports: Hx Anticoagulant Therapy Denies: Hx Diabetes Cardiovascular History: Reports: Hx Angina, Hx Congestive Heart Failure, Hx Coronary Artery Disease, Hx Deep Vein Thrombosis, Hx Hypercholesterolemia, Hx Myocardial Infarction Denies: Hx Hypertension, Hx Valvular Heart Disease Comment Only: Hx Embolism - 2013 Respiratory History: Reports: Hx Chronic Obstructive Pulmonary Disease (COPD), Hx Pulmonary Embolism Denies: Hx Asthma GI History: Reports: Hx Gastroesophageal Reflux Disease Musculoskeletal History: Reports: Hx Orthopedic Injury - Right humerus fx 2018, Other Musculoskeletal History - fractured right humerus Sensory History: Denies: Hx Contacts or Glasses, Hx Hearing Aid Opthamlomology History: Denies: Hx Contacts or Glasses Neurological History: Reports: 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, Other Neuro Impairments /Disorders - TBI Psychiatric History: Reports: Hx Bipolar Disorder - Surgical History Surgery Procedure, Year, and Place: [facility] Infectious Disease History: Denies: Hx Clostridium Difficile, Hx Hepatitis, Hx Human Immunodeficiency Virus (HIV), Hx of Known/Suspected MRSA, Hx Shingles, Hx Tuberculosis - Family History Known Family History: Positive: Cardiac Disease - Father: triple bypass, Blood Disorder - PE - Social History Alcohol Use: None Substance Use Type: Reports: None Smoking Status (MU): Never Smoked Tobacco Review of Systems Positive: Chest Pain Positive: Shortness Of Breath - on exertion Positive: Other - bilateral leg pain described as swelling and erythema in his feet, radiating up to his calves All Other Systems Reviewed And Are Negative: Yes Physical Exam - Summary Physical Exam Summary: VITAL SIGNS: Reviewed. GENERAL: Patient is a well-developed and nourished MALE who is lying comfortable in the stretcher. Patient is not in any acute respiratory distress. HEAD AND FACE: No signs of trauma. No ecchymosis, hematomas or skull depressions. No sinus tenderness. EYES: PERRLA, EOMI x 2, No injected conjunctiva, no nystagmus. EARS: Hearing grossly intact. Ear canals and tympanic membranes are within normal limits. MOUTH: Oropharynx within normal limits. NECK: Supple, trachea is midline, no adenopathy, no JVD, no carotid bruit, no c- spine tenderness, neck with full ROM. CHEST: Symmetric, no tenderness at palpation LUNGS: Clear to auscultation bilaterally. No wheezing or crackles. CVS: Tachycardic at 131 bpm. Regular rhythm, S1 and S2 present, no murmurs or gallops appreciated. ABDOMEN: Soft, non-tender. No signs of distention. No rebound no guarding, and no masses palpated. Bowel sounds are normal. EXTREMITIES: FROM in all major joints, no cyanosis or clubbing. R lower extremity has swelling more than the L; has redness from the knee down but still has good pulses NEURO: Alert and oriented x 3. No acute neurological deficits. Speech is normal and follows commands. SKIN: Dry and warm Triage Information Reviewed: Yes Vital Signs On Initial Exam: Initial Vitals Temp Pulse Resp BP Pulse Ox 98.7 F 114 17 99/58 99 05/20/18 12:12 05/20/18 12:12 05/20/18 12:12 05/20/18 12:12 05/20/18 12:12 Vital Signs Reviewed: Yes Diagnostics - Laboratory Result Diagrams: 05/20/18 11:53 05/20/18 11:53 Lab Statement: Any lab studies that have been ordered have been reviewed, and results considered in the medical decision making process. - CT CTA chest/thorax CT Interpretation Completed By: Radiologist - No definite pulmonary embolus is noted although evaluation is limited due to poor opacification of the pulmonary arteries. No evidence of aortic dissection. Calcification upper pole left kidney. Patient status post splenectomy. ED physician has reviewed this radiology report. - EKG 1210 Cardiac Rate: Tachycardia - 105 BPM EKG Rhythm: Sinus Tachycardia EKG Interpretation: No ST elevations. Normal axis. Re-Evaluation - Re-Evaluation First Eval Re-Evaluation Time: 15:24 Comment: Discussed results with the patient. Second Eval Re-Evaluation Time: 15:35 Comment: Discussed plan for admission to Dr. Cooley. Lower Extremity Course/Dx - Course Assessment/Plan: This patient is a 52-year-old male who presents to the emergency room via ambulance with with regards with a chief complaint of having chest pain, shortness of breath, feeling that he is going to pass out. She reports that he was diagnosed with a DVT in the right lower extremity couple weeks ago, he has developed the symptoms. Patient reports that he is taking Coumadin for the DVT. He has past medical history significant for the DVT and GERD. Blood test results shows a hemoglobin of 11.9 and hematocrit 37 and MCV was 79, INR 1.61, mewing at 30, creatinine 1.32, and lactic acid of 3, abdomen phosphatase of 109, TSH of 8.52. Chest CT impression: No acute pulmonary edema. In the ED course the patient was given normal saline, morphine for the pain, and Zosyn for the right lower extremity cellulitis. Since the patient has an increase lactic acid I decided to discuss the physical exam, findings and and test results with Dr. Cooley from the hospitalist services was admitted the patient to his services for further workup and management. At this point the patient is hemoglobin medically stable, the patient is alert and oriented x 3. - Diagnoses Differential Diagnosis/HQI/PQRI: Positive: Cellulitis, DVT, Other - PE, ACS Provider Diagnoses: Cellulitis of right lower extremity - Physician Notifications Discussed Care Of Patient With: Nayana Cooley Time Discussed With Above Provider: 15:32 Instructed by Provider To: Other - Consulted Dr. Cooley who accepts the patient for admission. Discharge - Sign-Out/Discharge Documenting (check all that apply): Patient Departure - Discharge Plan Condition: Stable Disposition: ADMITTED TO [facility] Referrals: No Primary Care Phys,NOPCP [Primary Care Provider] - - Billing Disposition and Condition Condition: STABLE Disposition: Admitted to [facility]
[2018-05-20 12:30] LABS: INR 1.61 (0.77-1.02)
[2018-05-20 12:40] LABS: ABS Basophils 0.1 10^3/ul (0-0.2); ABS Eosinophils 0.2 10^3/ul (0-0.6); ABS Monocytes 1.5 10^3/ul (0-0.8); ABS Neutrophils 7.1 10^3/ul (1.5-7.7); ABS Nucleated RBC 0 10^3/ul; Eosinophil % 1.6 % (0-6); Hematocrit 37 % (42-52); Hemoglobin 11.8 g/dl (14.0-18.0); Lymphocyte % 18.4 % (25-47); Mean Corpuscular HGB Conc 32 g/dl (31-36); Mean Corpuscular Hemoglobin 25 pg (27-31); Mean Corpuscular Volume 79 fL (80-94); Nucleated Red Blood Cells % 0.3; Platelet Count 403 10^3/ul (150-450); Red Cell Distribution Width 21 % (10.5-15); White Blood Count 10.8 10^3/ul (3.5-10.8)
[2018-05-20 13:29] LABS: EGFR Non-African American 56.5 (>60)
[2018-05-20] MEDS ORDERED: Piperacillin/Tazobac ADVAN(*) 3.375 GM in NS 0.9% 100 ML* 100 ML IVPB ONE (13:31)
[2018-05-20] MEDS ORDERED: Iodixanol* (CONTRAST) 320 MG/ML 100 ML SDV IV ONE (13:32)
[2018-05-20] MEDS ORDERED: Morphine VIAL* 4 MG/ML VIAL (1 ml vial) IV ONE (14:28)
[2018-05-20] MEDS ORDERED: Morphine INJ* 2 MG/ML 1 ML SYRINGE (TWO MG - NEW SYRINGE VERSION) ONE (14:32)
--- NOTE | 2018-05-20 15:14 | RAD ---
Indication: Shortness of breath and tachycardia. Contrast: Administered 146.2 ml of VISAPAQUE 320 mg/ml CTA of the chest performed after IV contrast administration. Coronal and sagittal reconstructed images were obtained. The pulmonary arterial tree is poorly opacified. No gross filling defect is noted to suggest pulmonary embolus although the study is limited. Heart demonstrates no pericardial effusion. The trachea and major bronchi appear patent. The lung bases demonstrate no evidence of alveolar consolidation. There is no mediastinal or hilar adenopathy. No evidence of aortic dissection is noted. The visualized abdominal organs demonstrates left renal calculus. Patient is status post splenectomy. IMPRESSION: No definite pulmonary embolus is noted although evaluation is limited due to poor opacification of the pulmonary arteries. No evidence of aortic dissection.: Calcification upper pole left kidney. Patient status post splenectomy.
[2018-05-20] MEDS ORDERED: Acetaminophen TAB* 325 MG PO PRN ×2 (18:39→18:48)
[2018-05-20] MEDS ORDERED: oxyCODONE/Acetamin 5/325 MG* TAB PO ONE (18:39)
[2018-05-20] MEDS ORDERED: Warfarin TAB(*) 3 MG PO ONE (18:49)
--- NOTE | 2018-05-20 19:56 | RAD ---
INDICATION: The patient swallowed a plastic spoon 1 month earlier and " didn't feel this balloon in the stomach currently". COMPARISON: None TECHNIQUE: Supine and upright views of the abdomen were obtained. FINDINGS: The small bowel and colon appear nondistended. No free intraperitoneal air is seen. A foreign body compatible with a plastic spoon is not seen. An IVC filter is noted. Visualized bones are within normal limits for the patient's age. IMPRESSION: No foreign gastrointestinal item identified.
[2018-05-20] MEDS: Enoxaparin(*) 80 MG/0.8 ML SYR SUBCUT SCH (21:46)
[2018-05-20] MEDS: Morphine INJ* 2 MG/ML 1 ML SYRINGE (TWO MG - NEW SYRINGE VERSION) IV PRN (22:09)
--- NOTE | 2018-05-20 22:58 | HP ---
HISTORY AND PHYSICAL: DATE OF ADMISSION: 05/20/18 PROVIDER: Isauro Mejia NP. ATTENDING PHYSICIAN: Nayana Cooley DO * (report dictated by Isauro Mejia NP). PRIMARY CARE PROVIDER: [facility]. CHIEF COMPLAINT: Sent to [facility] for tachycardia, tachypnea, and right lower extremity swelling with redness. HISTORY OF PRESENT ILLNESS: Mr. Alicia is a 52-year-old male who currently resides at [facility] who has a history of being diagnosed with extensive bilateral DVTs back in March 2018, in which he was bridged from Lovenox to Coumadin. He was hospitalized from 04/15/18 to 04/17/18, for chest pain in which he underwent a cardiac workup and had a cardiac nuclear stress test, which placed him at low-risk. The patient reports that he initially felt better after he was discharged and approximately 3 weeks ago, he developed right lower extremity pain and swelling with some noted redness, reports he was treated with Benadryl and clarithromycin. He reports that this got better. Then, when it was discontinued, he states that over the past week, it has worsened with worsening redness from his foot up to his knee, which he reports as bright red, warm and that the extremity is swollen. He reports worsening shortness of breath with exertion. He also reports mid sternal chest pain intermittently. He denies orthopnea, cough, upper respiratory symptoms. Denies fever or chills. In the emergency department, he reports he continues to have significant right lower extremity pain. He also states that he feels anxious and has intermittent chest pain. Per the patient, he reports abdominal pain describing "discomfort" and states that he swallowed a spoon approximately a month ago. He states, "When my stomach is empty I can feel the spoon moving around in my stomach." He denies any bloody bowel movements. No vomiting. No diarrhea or constipation. PAST MEDICAL HISTORY: 1. Bilateral lower extremity extensive DVTs diagnosed 04/10/18. 2. Coronary artery disease, status post 2 stent placement in 2013. 3. Bilateral shoulder replacements. 4. Psych disorder. The patient has a known history of swallowing objects. 5. Anemia. 6. IVC filter CURRENT MEDICATIONS: 1. Coumadin 5 mg p.o. daily. 2. Omeprazole 20 mg p.o. daily. 3. Acetaminophen 650 mg p.o. q.6 hours p.r.n. 4. Aspirin 81 mg p.o. daily. 5. Thorazine 50 mg p.o. q.a.m. and 75 mg p.o. q.p.m. 6. Boost p.o. b.i.d. 7. Paxil 40 mg p.o. q.a.m. 8. Depakote 500 mg p.o. q.a.m. and 750 mg p.o. q.p.m. ALLERGIES: KETOROLAC. FAMILY HISTORY: Significant for coronary artery disease with a history of GA in both of his uncle and father. SOCIAL HISTORY: The patient reports he has a distant history of smoking over 20 years ago for a short amount of time. Denies alcohol intake. He is originally from [place] and currently is incarcerated at [facility]. He is a full code. REVIEW OF SYSTEMS: A 14-point review of systems was performed. All the pertinent positives and negatives are mentioned in the history of present illness. Otherwise are negative. PHYSICAL EXAMINATION GENERAL APPEARANCE: Well-developed 52-year-old male, sitting up in the emergency department stretcher, appears slightly anxious. VITAL SIGNS: Temperature 98.3, heart rate 103, respirations 19, O2 sat 98% on room air, blood pressure 111/81. HEENT: Head is normocephalic, atraumatic. Pupils are equal and reactive to light. Oropharynx is clear. Moist mucous membranes. NECK: Supple. RESPIRATORY: Lungs are clear to auscultation bilaterally. Good aeration throughout. No rhonchi, wheezes or rales noted. CARDIAC: S1, S2 regular rate and rhythm. No murmurs, rubs, or gallops appreciated. ABDOMEN : Soft, nontender, nondistended. Normal bowel sounds throughout. EXTREMITIES: No clubbing or cyanosis. Bilateral lower extremities have noted edema. Left lower extremity has 1 to 2+ edema and right lower extremity has 2 to 3+ edema with noted erythema from top of his knee. No noted wounds. NEUROLOGIC: Alert and oriented x3. Cranial nerves II through XII are grossly intact. PSYCH: Anxious. Appears slightly hyper. LABORATORY DATA AND DIAGNOSTIC STUDIES: WBC 10.8, RBC 4.70, HGB 11.8, HCT 37, MCV 79, MCH 25, MCHC 32, RDW 21, platelet count 403. INR 1.61. Sodium 136, potassium 4.8, chloride 103, carbon dioxide 25, anion gap 10, BUN 30, creatinine 1.32, glucose 92. Lactic acid 3.0, calcium 9.4, magnesium 2.0, total bilirubin 0.30, AST 16, ALT 12, alkaline phosphatase 109, total creatinine kinase 79, CK-MB 1.9, troponin 0.03, C-reactive protein 7.87, BNP 13 , total protein 7.6, albumin 4.3, TSH 8.52. Chest thorax CTA: Impression: No definite pulmonary embolism is noted, although evaluation is limited due to poor opacification of the pulmonary arteries. No evidence of aortic dissection. Calcification upper pole left kidney. The patient is status post splenectomy. EKG sinus tachycardia with a rate of 105. No acute ST changes noted compared to prior EKGs. ASSESSMENT AND PLAN: Mr. Alicia is a 52-year-old male with a past medical history of coronary artery disease status post 2 stent placements, non-provoked bilateral extensive deep venous thromboses diagnosed in March 2018, history of anemia, history of psych disorder, who presents to the emergency department today with complaints of right lower extremity pain, swelling, recently treated for cellulitis with clindamycin, now with worsening erythema and swelling. 1. Cellulitis. The patient's screens are positive for potential sepsis with lactic acid of 3.0, elevated creatinine above his baseline of 1.32 and tachycardia and tachypnea. However, the patient has no leukocytosis and no elevated CRP. It is possible that his acute renal injury and lactic acidosis is secondary to dehydration. However, we will treat the patient as per sepsis protocol. He has already received Zosyn in the emergency department as well as fluid resuscitation. We will continue him on ceftriaxone. Blood cultures have been sent in the emergency department. He is hemodynamically stable. 2. Chest pain. The patient has had 3 negative troponins and no EKG changes. He recently underwent a cardiac nuclear stress test, which placed him at low- risk. No need to monitor the patient on telemetry , I suspect some of this is secondary to anxiety. However, the patient should follow up with the lead simulation modeling engineer as an outpatient. Continue aspirin. The patient is on the beta- enrique due to soft blood pressures at his baseline. 3. Abnormal TSH. The patient presents with a TSH of 8.52. I do not see that we have a previous TSH on the patient. I will add on a thyroid panel. 4. Acute kidney injury. Unclear if this is secondary to an infectious process versus possible dehydration versus medication related. Plan to hydrate and recheck in the morning. 5. Psych history with bipolar. The patient has a history of swallowing objects. He reports approximately a month ago, he swallowed a spoon and feels it is moving around the stomach. We will obtain an abdominal x-ray. However, his abdominal exam was unremarkable. The plan to continue his home medications of Depakote, Paxil, and Thorazine. 6. Recent history of extensive bilateral deep venous thromboses. The patient presents with a subtherapeutic INR of 1.61 - the plan will be to bridge the patient on Lovenox and continue with Coumadin. Per patient, he gets his INR checked every 2 weeks in the facility. We will try to obtain previous INRs. He did undergo a CTA, which showed "no definite pulmonary embolus is noted, although evaluation is limited due to opacification of the pulmonary arteries. No evidence of aortic dissection." The patient does report some worsening shortness of breath with exertion as well as he is mildly tachycardic. As stated above, he presents today being subtherapeutic with his INR. I do think it is worth doing an echocardiogram to make sure there is no right heart strain as the CTA did not show pulmonary embolism, but it appears not be the best imaging. Will obtain an echo tomorrow. 7. DVT prophylaxis. Lovenox bridge to Coumadin. 8. Code status. Full code. TIME SPENT: Approximately 75 minutes was spent on this admission. ISAURO MEJIA, YUE [id number]/[facility] #: [id number] RYAN
[2018-05-20] MEDS: oxyCODONE/Acetamin 5/325 MG* TAB PO PRN (23:06)
[2018-05-20] MEDS ORDERED: diPHENhydraMINE PO* 25 MG PO PRN (23:37)
[2018-05-21] MEDS: Morphine INJ* 2 MG/ML 1 ML SYRINGE (TWO MG - NEW SYRINGE VERSION) IV PRN ×5 (02:21→20:34)
[2018-05-21] MEDS: Enoxaparin(*) 80 MG/0.8 ML SYR SUBCUT SCH (06:34)
[2018-05-21 06:52] LABS: ABS Basophils 0.1 10^3/ul (0-0.2); ABS Eosinophils 0.2 10^3/ul (0-0.6); ABS Lymphocytes 2.3 10^3/ul (1.0-4.8); ABS Monocytes 1.3 10^3/ul (0-0.8); ABS Neutrophils 3.8 10^3/ul (1.5-7.7); ABS Nucleated RBC 0 10^3/ul; Eosinophil % 3.1 % (0-6); Hematocrit 34 % (42-52); Hemoglobin 10.8 g/dl (14.0-18.0); Mean Corpuscular HGB Conc 32 g/dl (31-36); Mean Corpuscular Hemoglobin 25 pg (27-31); Mean Corpuscular Volume 79 fL (80-94); Mean Platelet Volume 8.7 um3 (7.4-10.4); Nucleated Red Blood Cells % 0.4; Platelet Count 374 10^3/ul (150-450); Red Blood Count 4.31 10^6/ul (4.00-5.40); Red Cell Distribution Width 21 % (10.5-15); White Blood Count 7.6 10^3/ul (3.5-10.8)
--- NOTE | 2018-05-21 07:28 | PN ---
Subjective Date of Service: 05/21/18 Interval History: patient reports his RLE is less red. It continues to be swollen. Denies SOB/CP. Report pain is much better today. No abdominal pain/nausea, denies diarrhea/ constipation. Reports good appetite. Objective Active Medications: Acetaminophen (Tylenol Tab*) 650 mg PO Q6H PRN PRN Reason: PAIN Aspirin (Aspirin 81 Mg Chew Tab*) 81 mg PO DAILY [facility] Chlorpromazine HCl (Thorazine Tab*) 75 mg PO QPM [facility] Chlorpromazine HCl (Thorazine Tab*) 50 mg PO QAM [facility] Diphenhydramine HCl (Benadryl Po*) 25 mg PO Q6H PRN PRN Reason: ITCHING Last Admin: 05/20/18 23:56 Dose: 25 mg Divalproex Sodium (Depakote Er Tab(*)) 750 mg PO QPM [facility] Divalproex Sodium (Depakote Er Tab(*)) 500 mg PO QAM [facility] Enoxaparin Sodium (Lovenox(*)) 75 mg SUBCUT Q12H [facility] Last Admin: 05/21/18 06:34 Dose: 75 mg Ceftriaxone Sodium 1 gm/ (Sodium Chloride) 50 mls @ 200 mls/hr IVPB Q24H [facility] Morphine Sulfate (Morphine Inj ((Syringe))*) 2 mg IV Q4H PRN PRN Reason: PAIN Last Admin: 05/21/18 06:35 Dose: 2 mg Omeprazole (Prilosec Cap*) 20 mg PO DAILY [facility] Oxycodone/Acetaminophen (Percocet 5/325 Tab*) 1 tab PO Q4H PRN PRN Reason: PAIN Last Admin: 05/20/18 23:06 Dose: 1 tab Paroxetine HCl (Paxil Tab*) 40 mg PO QAM [facility] Warfarin Sodium (Coumadin Tab(*)) 5 mg PO 1700 [facility]; Protocol Vital Signs - 8 hr 05/20/18 05/20/18 05/21/18 23:42 23:56 01:53 Temperature Pulse Rate Respiratory 18 18 18 Rate Blood Pressure (mmHg) O2 Sat by Pulse Oximetry 05/21/18 05/21/18 05/21/18 02:18 02:21 03:23 Temperature 98.8 F Pulse Rate 86 Respiratory 18 18 18 Rate Blood Pressure 119/84 (mmHg) O2 Sat by Pulse 98 Oximetry 05/21/18 05/21/18 05/21/18 04:18 06:35 07:24 Temperature 98.5 F Pulse Rate 85 Respiratory 16 18 18 Rate Blood Pressure 123/78 (mmHg) O2 Sat by Pulse 96 Oximetry Oxygen Devices in Use Now: None Appearance: 52 yo male sitting up in bed watching TV in NAD A+Ox3 Eyes: No Scleral Icterus, PERRLA Ears/Nose/Mouth/Throat: NL Teeth, Lips, Gums, Mucous Membranes Moist Neck: NL Appearance and Movements; NL JVP Respiratory: Symmetrical Chest Expansion and Respiratory Effort, Clear to Auscultation Cardiovascular: NL Sounds; No Murmurs; No JVD, RRR Abdominal: NL Sounds; No Tenderness; No Distention Extremities: No Clubbing, Cyanosis, - - B/L 2+ LE edema. RLE diffuse light erythema top of foot traveling up turner to knee. warm to touch Neurological: Alert and Oriented x 3, NL Sensation, NL Gait, NL Muscle Strength and Tone Lines/Tubes/Other Access: Clean, Dry and Intact Peripheral IV Nutrition: Taking PO's Result Diagrams: 05/21/18 05:39 05/21/18 05:40 Microbiology and Other Data: Microbiology 05/21/18 02:15 Nasal Screen MRSA (PCR) - Final Nasal Mrsa Not Detected Assess/Plan/Problems-Billing Assessment: Mr. Alicia is a 52 yo male prisoner with a PMH of CAD s/p 2 stents 2013, hx of unprokeoved bilateral extensive DVTs, IVC filter, anemia, psych disorder who presented to the emergency department woth tachypnea, tachycardia, right LE erythema and swelling (recently was treated fro RLE cellulitis), as well as, reporting he swallowed a spoon 1 month ago which has been confirmed by xray. - Patient Problems (1) Cellulitis Comment: - was treated with clindamycin as outpt Improving. Possible mild sepsis on admission now resolved. Patient is feeling much better today and has less erythema. blood cx NTD continue ceftriaxone (2) Swallowed foreign body Comment: - Spoon noted on abdominal xray; swallow approx 1 month ago - Appreciate GI consult - plan to hold coumadin, ok to continue lovenox HOWEVER GI wants abdominal xray to be performed Qam and lovenox and breakfast held every am until nurse calls [phone] to confirm if he will have an upper endoscopy. - Check INR daily. ok to eat. (3) History of DVT (deep vein thrombosis) Comment: - Hx of DVT "many years ago" after TBI and was immobile, was tx with coumadin and has been off for many years. - Now recent dx of "extensive B/L DVT's" - will need lifelong anticoagulation - Case was discussed with Heme last hospitalization, no need for hypercoagulable workup as the treatment wont change , he will require life long anticoagualtion for unprovoked DVT. Recommended age appropriate cancer screenings, which patient has not had a colonoscopy. - CTA - no PE but was a poor study and d/t LE edema obtain an echo to assess right heart function - INR subtherapuetic, continue Lovenox BID and hold coumadin for now until endoscopy - Daily INR (4) History of psychiatric disorder Comment: - per [facility] nursing staff significant psych hx with aggressive behavior, hx has of stealing pens and swallowing them. (5) CAD (coronary artery disease) Comment: - Hx of CAD with stents in 2013 - Only on ASA. (6) DVT prophylaxis Comment: - lovenox Q12 hour; hold coumadin (7) Full code status Status and Disposition: inpatient cellulitis. Now requiring endoscopy for swallow foreign body. DC to [facility] when stable
[2018-05-21 08:14] LABS: EGFR Non-African American 59.1 (>60)
[2018-05-21] MEDS: oxyCODONE/Acetamin 5/325 MG* TAB PO PRN ×2 (08:21→12:25)
[2018-05-21] MEDS: PARoxetine HCL TAB* 40 MG PO SCH (08:21)
[2018-05-21] MEDS: Aspirin 81 mg CHEW TAB* 81 MG TAB.CHEW PO SCH (08:21)
[2018-05-21] MEDS: chlorproMAZINE TAB* 50 MG PO SCH (08:21)
[2018-05-21] MEDS: Omeprazole CAP* 20 MG PO SCH (08:21)
[2018-05-21] MEDS: Divalproex ER TAB(*) 500 MG PO SCH (08:21)
[2018-05-21] MEDS: cefTRIAXone(*) 1 GM in NS 0.9% 50 ML* 50 ML IVPB SCH (08:28)
[2018-05-21 09:41] LABS: Urine Appearance Clear; Urine Blood Negative (Negative); Urine Color Yellow; Urine Ketones Negative (Negative); Urine Protein Negative (Negative); Urine Specific Gravity 1.016 (1.010-1.030); Urine Urobilinogen Negative (Negative)
--- NOTE | 2018-05-21 11:17 | ECHO ---
Patient: TRU DAY [id number] [facility] Rec#: [id number] : 1965 Date: 05/21/2018 Age: 52y Height: 172.72 cm / 68.0 in Weight: 90.72 kg / 199.9 lbs Sex: M BSA: 2.04 Room#: 404 Admit Date#: 05/20/2018 Type: Inpatient Referring: Joyce Winters Reading: Caleb Ballesteros DO Embedded Software Manager: Rhiannon Hoang RDCS CC: Manjit Caballero MD Transthoracic Echocardiogram Indication: SOB BP: 119/84 HR: 95 Rhythm: NSR Findings History: Prior DVT,angina,CHF,COPD,CAD,HLD ,prior DC,seizures. Technical Comments: The study quality is good. Completed at 1035. Left Ventricle: The left ventricular chamber size is normal. There is no left ventricular hypertrophy. Global left ventricular wall motion and contractility are within normal limits. There is normal left ventricular systolic function. The estimated ejection fraction is 55-60%. There is no consistent Doppler evidence of clinically significant diastolic dysfunction. Left Atrium: The left atrium is normal in size. Right Ventricle: The right ventricular chamber size and systolic function are within normal limits. Right Atrium: The right atrial cavity size is normal. Aortic Valve: The aortic valve is trileaflet. There is no evidence of aortic regurgitation. There is no evidence of aortic stenosis. Mitral Valve: The mitral valve leaflets are mildly thickened. There is a trace of mitral regurgitation. There is no evidence of mitral stenosis. Tricuspid Valve: The tricuspid valve leaflets are normal. There is trace tricuspid regurgitation. Unable to estimate the right ventricular systolic pressure. There is no tricuspid stenosis. Pulmonic Valve: The pulmonic valve appears normal. There is no evidence of pulmonic regurgitation. There is no pulmonic stenosis. Pericardium: There is no significant pericardial effusion. Aorta: There is no dilation of the aortic root. Pulmonary Artery: The main pulmonary artery is not well visualized. Venous: The venous system is not well visualized. Conclusions The left ventricular chamber size is normal. There is no left ventricular hypertrophy. Global left ventricular wall motion and contractility are within normal limits. There is normal left ventricular systolic function. The estimated ejection fraction is 55-60%. The left atrium is normal in size. The right ventricular chamber size and systolic function are within normal limits. There is trace tricuspid regurgitation. Unable to estimate the right ventricular systolic pressure. Compared to prior study from 03/2018, no clinically significant changes noted. Measurements Name Value Normal Range RVIDd (AP) 2D 2.8 cm (0.9 - 2.6) RVDdMajor (2D) 2.4 cm (2.2 - 4.4) RAd ISD 4CH 4 cm (3.4 - 4.9) RA (A4C)W 2.9 cm (2.9 - 4.6) IVSd (2D) 1 cm (0.6 - 1) LVPWd (2D) 1 cm (0.6 - 1) LVIDd (2D) 4.9 cm (3.6 - 5.4) LVIDs (2D) 3.3 cm - LV FS (2D) 33 % (25 - 45) Aortic Annulus 2.2 cm (1.4 - 2.6) Ao root diameter (2D) 3.4 cm (2.1 - 3.5) Ascending Ao 3.4 cm (2.1 - 3.4) Aortic arch 2.5 cm (1.8 - 3.4) Descending Ao 0.7 cm - LA dimension (AP) 2D 3.2 cm (2.3 - 3.8) LAd ISD 4CH 3.7 cm (2.9 - 5.3) LA ISD 4CH W 3.7 cm (2.5 - 4.5) Name Value Normal Range LA ESV SP 4CH (A/L) 32 ml - LA ESV SP 2CH (A/L) 37 ml - LA ESV BP (A/L) 37 ml - LA ESV BP (A/L) index 18.06 ml/m2 - LA ESV SP 4CH (MOD) 26 ml - LA ESV SP 2CH (MOD) 37 ml - Name Value Normal Range MV E-wave Vmax 0.7 m/sec - MV deceleration time 151 msec - MV A-wave Vmax 0.9 m/sec - MV E:A ratio 0.8 ratio - LV septal e' Vmax 0.1 m/sec - LV lateral e' Vmax 0.1 m/sec - LV E:e' septal ratio 7 ratio - LV E:e' lateral ratio 7 ratio - Name Value Normal Range AV Vmax 1.5 m/sec - AV VTI 26.2 cm - AV peak gradient 8.47 mmHg - AV mean gradient 4.9 mmHg - LVOT Vmax 1.1 m/sec - LVOT VTI 21.1 cm - LVOT peak gradient 4.68 mmHg - LVOT mean gradient 2.06 mmHg - Name Value Normal Range PV Vmax 1 m/sec - PV peak gradient 3.83 mmHg -
[2018-05-21 13:17] LABS: INR 1.85 (0.77-1.02)
[2018-05-21] MEDS ORDERED: Warfarin TAB(*) 5 MG PO SCH (17:00)
[2018-05-21] MEDS: chlorproMAZINE TAB* 25 MG PO SCH (17:31)
[2018-05-21] MEDS: Divalproex ER TAB(*) 250 MG PO SCH (17:32)
[2018-05-21] MEDS ORDERED: Enoxaparin(*) 100 MG/ML SYR SUBCUT SCH (20:00)
[2018-05-21] MEDS ORDERED: NS 0.9% 1000 ML* 1,000 ML IV SCH (20:00)
[2018-05-21] MEDS: Enoxaparin(*) 100 MG/ML SYR SUBCUT SCH (20:34)
--- NOTE | 2018-05-21 21:30 | CONS ---
GASTROENTEROLOGY CONSULT: DATE: 11/07 CONSULTING PHYSICIAN: Nayana Cooley DO REASON FOR CONSULTATION: Ingested spoon and microcytic anemia. HISTORY: This 52-year-old inmate at [facility] admitted because of swelling and erythema of the leg diagnosed as cellulitis, also gave a history of ingesting a spoon about a month ago. It was plastic and he says it was an uncontrollable action that he does to accommodate anxiety related to the of his 17-year-old son in a motor vehicle accident. Six months ago, he ingested a plastic spoon and had it [place] [facility]. Some time before that, he had nail clippers removed. All the history is per the patient verbally . He has been at [facility] for the last 6 weeks and anticipates another 3 months there. He says he was told he was anemic during a previous admission 6 weeks ago with chest pain. He ruled out. At this time, he is felt to have cellulitis. He is supposed to be on warfarin, but his INR is on admission only 1.61. He states he had gastric ulcers diagnosed endoscopically in his 30s when he was taking Aleve for shoulder pain. PAST MEDICAL HISTORY: 1. Psychiatric condition. 2. Chronic shoulder pain with shoulder replacement surgeries. 3. History of DVTs, on permanent anticoagulation. 4. Coronary artery disease, status post stenting in 2013. 5. Multiple foreign body ingestions. 6. History of traumatic brain injury in 2009 in [place], [place], hospitalized and had a PEG tube placed. 7. Laparoscopic abdominal exploration - details uncertain. The patient says the spleen was removed, but I see no corroboration of that anywhere else in the chart and he does not have any obvious incision, just laparoscopic stab dorantes from trocars. 8. Microcytic anemia - he deflected having a rectal exam during his last admission saying that he had had stool guaiac at the facility a month ago and it was negative. He has been on chronic omeprazole. SOCIAL HISTORY: He is from [place] originally. He says this is his first incarceration. REVIEW OF SYSTEMS: No history of syncope, current chest pain, hepatitis, jaundice, pulmonary disease, TB, rectal bleeding, bowel problems, psoriasis, myasthenia gravis, or recent fall or fracture. EXAM: He is a rather excitable middle-aged man, sitting up and gesticulating frequently and trying to give the history. HEENT exam shows occipital scars. Vitals are normal. Blood pressure 114/78, pulse 88, O2 saturation 98%. He is anicteric. He has no adenopathy. Lungs are clear and heart sounds are regular. The abdomen shows multiple upper abdominal trocar wounds and one at the umbilicus. Abdomen is protuberant, firm and without focal finding. Rectal deferred. Extremities show bilateral 1+ edema, minimal erythema, no gross deformity. He has ankle irons on. DIAGNOSTIC STUDIES/LAB DATA: Hemoglobin on admission 11.8, dropping to 10.8 with MCV 79, platelets 374,000. Albumin 4.2. LFTs normal with a constant alk phos of 109, minimally elevated bilirubin 0.3. INR on the second day 1.85. HOSPITAL COURSE: This morning he was fed. He also received Lovenox last night and this morning at 7 AM and 6 mg of warfarin last night. IMPRESSION: This 52-year-old man has plastic spoon in his stomach. Whether it is truly causing any problem is unclear, but it seems reasonable to remove it if it can be orchestrated around the priorities of his other medical problems namely cellulitis and his history of deep venous thromboses. Appropriate plan would be to hold warfarin, given evening Lovenox and then when the INR is less than 1.4, move ahead to anesthesia assisted removal of the spoon. There may be diagnostic findings at the endoscopy that have bearing on his microcytic anemia. Obtaining stool Hemoccult would also be useful. [id number]/[facility] #: [id number] MTDD
[2018-05-22] MEDS: Morphine INJ* 2 MG/ML 1 ML SYRINGE (TWO MG - NEW SYRINGE VERSION) IV PRN ×2 (06:50→11:25)
[2018-05-22 07:31] LABS: INR 1.91 (0.77-1.02)
[2018-05-22 07:40] LABS: ABS Basophils 0 10^3/ul (0-0.2); ABS Eosinophils 0.4 10^3/ul (0-0.6); ABS Lymphocytes 1.6 10^3/ul (1.0-4.8); ABS Monocytes 1.1 10^3/ul (0-0.8); ABS Neutrophils 3.1 10^3/ul (1.5-7.7); ABS Nucleated RBC 0 10^3/ul; Eosinophil % 6.4 % (0-6); Hematocrit 35 % (42-52); Hemoglobin 11.1 g/dl (14.0-18.0); Lymphocyte % 25.7 % (25-47); Mean Corpuscular HGB Conc 32 g/dl (31-36); Mean Corpuscular Hemoglobin 25 pg (27-31); Mean Corpuscular Volume 79 fL (80-94); Mean Platelet Volume 8.4 um3 (7.4-10.4); Nucleated Red Blood Cells % 0.4; Platelet Count 350 10^3/ul (150-450); Red Blood Count 4.44 10^6/ul (4.00-5.40); Red Cell Distribution Width 21 % (10.5-15); White Blood Count 6.2 10^3/ul (3.5-10.8)
[2018-05-22 07:47] LABS: EGFR Non-African American 83.6 (>60)
--- NOTE | 2018-05-22 09:13 | RAD ---
HISTORY: foreign body, no other history is provided COMPARISONS: May 20, 2018. VIEWS: Frontal views of the abdomen. FINDINGS: BOWEL: There is a nonobstructive bowel gas pattern. There is a large amount of stool within the colon. The radiolucent object noted in the stomach on the previous examination is not well visualized on the current examination, though there is no longer gaseous distention of the stomach which eliminates the contrast between the foreign body and the stomach. CALCULI: There are no abnormal calculi. BONES AND SOFT TISSUES: Mild degenerative changes are noted. OTHER FINDINGS: The lung bases are clear. There is no subphrenic gas. An IVC filter is noted. IMPRESSION: NO RADIOPAQUE FOREIGN BODY IS NOTED. THE RADIOLUCENT OBJECT NOTED IN THE STOMACH ON THE PREVIOUS EXAMINATION IS NOT WELL-VISUALIZED ON THE CURRENT EXAMINATION, THOUGH THERE HAS BEEN INTERVAL RESOLUTION OF THE GASEOUS DISTENTION OF THE STOMACH WHICH LIMITS THE RADIOGRAPHIC CONTRAST AND THE PLASTIC SPOON AND THE STOMACH, AND MAY MAKE THE SPOON RADIOGRAPHICALLY OCCULT ON THE CURRENT EXAMINATION.
[2018-05-22] MEDS: Omeprazole CAP* 20 MG PO SCH (09:39)
[2018-05-22] MEDS: chlorproMAZINE TAB* 50 MG PO SCH (09:39)
[2018-05-22] MEDS: PARoxetine HCL TAB* 40 MG PO SCH (09:39)
[2018-05-22] MEDS: Divalproex ER TAB(*) 500 MG PO SCH (09:39)
[2018-05-22] MEDS: oxyCODONE/Acetamin 5/325 MG* TAB PO PRN ×3 (09:39→20:18)
[2018-05-22] MEDS: Aspirin 81 mg CHEW TAB* 81 MG TAB.CHEW PO SCH (09:39)
[2018-05-22] MEDS: Enoxaparin(*) 100 MG/ML SYR SUBCUT SCH (09:40)
[2018-05-22] MEDS: cefTRIAXone(*) 1 GM in NS 0.9% 50 ML* 50 ML IVPB SCH (09:41)
[2018-05-22] MEDS ORDERED: Phytonadione Oral Solution* 5 MG/25 ML UDC PO ONE (10:09)
--- NOTE | 2018-05-22 13:59 | RAD ---
INDICATION: Foreign body swallowed plastic spoon. COMPARISON: Comparison is made with a prior abdominal series from May 22, 2018. TECHNIQUE: A CT scan of the abdomen and pelvis was performed without intravenous and with oral contrast. Contiguous axial sections were obtained from the lung bases through the symphysis pubis. Images were reconstructed in the coronal and sagittal planes. FINDINGS: The lung bases are clear. No pleural effusion is present. The liver is normal in size without significant focal abnormality on this noncontrast study. No calcified gallstones are seen. The spleen is small in size possibly representing splenules. The pancreas appears to be within normal limits. The kidneys and adrenal glands are normal in size. There is a 3.2 cm cyst in the upper pole of the right kidney. No renal calculi or hydronephrosis is seen. The aorta is normal in caliber with moderate calcific plaque present. There is a filter within the distal inferior vena cava below the level of the renal nina. No significant enlarged retroperitoneal lymph nodes are seen. The stomach, small and large bowel appear nondistended. The appendix is within normal limits. There is a curvilinear foreign body present within the stomach measuring 14.3 cm in length and the shape of a spoon. This would be consistent with the patient's history of swallowing a plastic spoon. No free intraperitoneal air or fluid is seen. There is interstitial stranding in the inguinal regions suggesting the possibility of inflammatory change. Recommend clinical correlation. No significant focal osseous abnormality is seen. The results of this exam were discussed with the referring clinician. IMPRESSION: 1. THERE IS A FOREIGN BODY IN THE STOMACH WHICH APPEARS TO BE A PLASTIC SPOON. 2. THERE IS INTERSTITIAL STRANDING IN THE INGUINAL REGIONS POSSIBLY INDICATING INFLAMMATORY CHANGE. RECOMMEND CLINICAL CORRELATION.
[2018-05-22] MEDS ORDERED: Buffered Lidocaine 0.9% SYRIN* 5 ML/SYR SYRINGE INTRADERM ONE (14:28)
--- NOTE | 2018-05-22 17:13 | PN ---
Subjective Date of Service: 05/22/18 Interval History: Mr. Alicia complains of chronic pain in his legs but notes that the swelling and redness in his right foot and ankle have greatly improved. He denies abdominal pain or nausea. Objective Active Medications: Acetaminophen (Tylenol Tab*) 650 mg PO Q6H PRN Aspirin (Aspirin 81 Mg Chew Tab*) 81 mg PO DAILY [facility] Chlorpromazine HCl (Thorazine Tab*) 75 mg PO QPM [facility] Chlorpromazine HCl (Thorazine Tab*) 50 mg PO QAM [facility] Diphenhydramine HCl (Benadryl Po*) 25 mg PO Q6H PRN Divalproex Sodium (Depakote Er Tab(*)) 750 mg PO QPM [facility] Divalproex Sodium (Depakote Er Tab(*)) 500 mg PO QAM [facility] Enoxaparin Sodium (Lovenox(*)) 90 mg SUBCUT 2200 ONE Famotidine (Pepcid Iv*) 20 mg IV ONCE ONE Ceftriaxone Sodium 1 gm/ (Sodium Chloride) 50 mls @ 200 mls/hr IVPB Q24H [facility] Lactated Ringer's (Lactated Ringers 1000 Ml Bag*) 1,000 mls @ 125 mls/hr IV PER RATE [facility] Lidocaine/Sodium Bicarbonate (Buffered Lidocaine 0.9% Syrin*) 0.2 ml INTRADERM 0600 ONE Omeprazole (Prilosec Cap*) 20 mg PO DAILY [facility] Oxycodone/Acetaminophen (Percocet 5/325 Tab*) 1 tab PO Q4H PRN Oxycodone/Acetaminophen (Percocet 5/325 Tab*) 2 tab PO Q4H PRN Paroxetine HCl (Paxil Tab*) 40 mg PO QAM [facility] Vital Signs: Temp Pulse Resp BP Pulse Ox 98.1 F 79 16 115/76 98 05/22/18 11:15 05/22/18 11:07 05/22/18 15:32 05/22/18 11:07 05/22/18 11:07 Oxygen Devices in Use Now: None Appearance: Male lying in bed in NAD Eyes: No Scleral Icterus Ears/Nose/Mouth/Throat: Mucous Membranes Moist Respiratory: Symmetrical Chest Expansion and Respiratory Effort, Clear to Auscultation Cardiovascular: NL Sounds; No Murmurs; No JVD, - - +1 edema B LE Abdominal: NL Sounds; No Tenderness; No Distention Lymphatic: No Cervical Adenopathy Skin: No Rash or Ulcers Neurological: Alert and Oriented x 3, NL Muscle Strength and Tone Nutrition: Taking PO's Result Diagrams: 05/22/18 07:14 05/22/18 07:14 Assess/Plan/Problems-Billing Assessment: Mr. Alicia is a 52 yo male prisoner with a PMH of CAD s/p 2 stents 2013, hx of unprokeoved bilateral extensive DVTs, IVC filter, anemia, psych disorder who presented to the emergency department with tachypnea, tachycardia, right LE erythema and swelling (recently was treated fro RLE cellulitis), as well as, reporting he swallowed a spoon 1 month ago which has been confirmed by xray. - Patient Problems (1) Swallowed foreign body Comment: - Spoon noted in stomache on CT abdomen; swallowed approx 1 month ago - Appreciate GI consult - Plan to hold coumadin, start lovenox, give vitamin K x 1 now for INR 1.9 Anticipate plan for removal tomorrow per Dr. Caballero. (2) Cellulitis Comment: - Resolving. - Switch to keflex,was treated with clindamycin as outpt (3) CAD (coronary artery disease) Comment: - Hx of CAD with stents in 2013 - Only on ASA. 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 - Now recent dx of "extensive B/L DVT's" - will need lifelong anticoagulation - Case was discussed with Heme last hospitalization, no need for hypercoagulable workup as the treatment wont change , he will require life long anticoagualtion for unprovoked DVT. Recommended age appropriate cancer screenings, which patient has not had a colonoscopy. - CTA - no PE but was a poor study and d/t LE edema obtain an echo to assess right heart function - Continue Lovenox BID and hold coumadin for now until endoscopy (5) History of psychiatric disorder Comment: - per [facility] staff significant psych hx with aggressive behavior, hx has of stealing pens and swallowing them. (6) DVT prophylaxis Comment: - lovenox Q12 hour; hold coumadin (7) Full code status Comment: Status and Disposition: Inpatient. Anticipate discharge to [place] when medically stable.
[2018-05-22] MEDS: chlorproMAZINE TAB* 25 MG PO SCH (17:17)
[2018-05-22] MEDS: Divalproex ER TAB(*) 250 MG PO SCH (17:17)
[2018-05-22] MEDS: Cephalexin CAP* 500 MG PO SCH (20:19)
[2018-05-22] MEDS ORDERED: Enoxaparin(*) 100 MG/ML SYR SUBCUT ONE (22:00)
[2018-05-23] MEDS: oxyCODONE/Acetamin 5/325 MG* TAB PO PRN ×3 (05:40→14:11)
[2018-05-23 05:48] LABS: INR 1.29 (0.77-1.02)
[2018-05-23] MEDS ORDERED: Buffered Lidocaine 0.9% SYRIN* 5 ML/SYR SYRINGE INTRADERM ONE (06:00)
[2018-05-23] MEDS ORDERED: Famotidine IV* 10 MG/ML 2 ML (20 mg) IV ONE (06:00)
[2018-05-23] MEDS ORDERED: Midazolam* 1 MG/ML 2 ML VIAL (2 MG) ONE ×2 (07:55→08:27)
[2018-05-23] MEDS ORDERED: fentaNYL* 50 MCG/ML 2 ML VIAL (100 MCG VIAL) ONE (07:55)
[2018-05-23] MEDS ORDERED: Naloxone* 0.4 MG/ML 1 ML VIAL IV PRN (08:14)
[2018-05-23] MEDS ORDERED: Acetaminophen TAB* 325 MG PO PRN (08:14)
[2018-05-23] MEDS ORDERED: HYDROcodone/ACETAMIN 5-325 MG* 1 TAB PO PRN (08:14)
[2018-05-23] MEDS ORDERED: fentaNYL* 50 MCG/ML 2 ML VIAL (100 MCG VIAL) IV PRN (08:14)
[2018-05-23] MEDS ORDERED: oxyCODONE TAB* 5 MG TAB PO PRN (08:14)
[2018-05-23] MEDS: Aspirin 81 mg CHEW TAB* 81 MG TAB.CHEW PO SCH (08:34)
[2018-05-23] MEDS: Divalproex ER TAB(*) 500 MG PO SCH (08:34)
[2018-05-23] MEDS: chlorproMAZINE TAB* 50 MG PO SCH (08:34)
[2018-05-23] MEDS: Cephalexin CAP* 500 MG PO SCH ×2 (08:34→12:50)
--- NOTE | 2018-05-23 08:34 | PN ---
Subjective Date of Service: 05/23/18 Interval History: Mr. Alicia reports feeling sleepy after his endoscopy to remove the spoon he swallowed but he denies other complaint. Objective Active Medications: Acetaminophen (Tylenol Tab*) 650 mg PO Q6H PRN Acetaminophen (Tylenol Tab*) 650 mg PO ONCE PRN Hydrocodone Bitart/Acetaminophen ([place] 5-325 Tab*) 1 tab PO ONCE PRN Aspirin (Aspirin 81 Mg Chew Tab*) 81 mg PO DAILY [facility] Cephalexin HCl (Keflex Cap*) 500 mg PO QID [facility] Chlorpromazine HCl (Thorazine Tab*) 75 mg PO QPM [facility] Chlorpromazine HCl (Thorazine Tab*) 50 mg PO QAM [facility] Diphenhydramine HCl (Benadryl Po*) 25 mg PO Q6H PRN Divalproex Sodium (Depakote Er Tab(*)) 750 mg PO QPM [facility] Divalproex Sodium (Depakote Er Tab(*)) 500 mg PO QAM [facility] Fentanyl Citrate (Fentanyl*) 50 mcg IV Q5M PRN Lactated Ringer's (Lactated Ringers 1000 Ml Bag*) 1,000 mls @ 125 mls/hr IV PER RATE [facility] Naloxone HCl (Narcan*) 0.08 mg IV Q2M PRN Omeprazole (Prilosec Cap*) 20 mg PO DAILY [facility] Oxycodone HCl (Roxycodone Tab*) 5 mg PO ONCE PRN Oxycodone/Acetaminophen (Percocet 5/325 Tab*) 1 tab PO Q4H PRN Oxycodone/Acetaminophen (Percocet 5/325 Tab*) 2 tab PO Q4H PRN Paroxetine HCl (Paxil Tab*) 40 mg PO QAM [facility] Vital Signs: Temp Pulse Resp BP Pulse Ox 97.8 F 73 18 100/72 99 05/23/18 03:46 05/23/18 03:46 05/23/18 06:31 05/23/18 03:46 05/23/18 03:46 Oxygen Devices in Use Now: None Appearance: Male lying in bed in NAD Eyes: No Scleral Icterus Ears/Nose/Mouth/Throat: Mucous Membranes Moist Neck: Trachea Midline Respiratory: Symmetrical Chest Expansion and Respiratory Effort, Clear to Auscultation Cardiovascular: NL Sounds; No Murmurs; No JVD, No Edema Abdominal: NL Sounds; No Tenderness; No Distention Extremities: No Edema Skin: No Rash or Ulcers Neurological: Alert and Oriented x 3, NL Muscle Strength and Tone Nutrition: Taking PO's Result Diagrams: 05/22/18 07:14 05/22/18 07:14 Assess/Plan/Problems-Billing Assessment: Mr. Alicia is a 52 yo male prisoner with a PMH of CAD s/p 2 stents 2013, hx of unprokeoved bilateral extensive DVTs, IVC filter, anemia, psych disorder who presented to the emergency department with tachypnea, tachycardia, right LE erythema and swelling (recently was treated fro RLE cellulitis), as well as, reporting he swallowed a spoon 1 month ago which has been confirmed by xray. - Patient Problems (1) Swallowed foreign body Comment: - Spoon noted in stomach on CT abdomen; swallowed approx 1 month ago. - Appreciate GI consult. Removed today. (2) Cellulitis Comment: - Resolving. - Switch to keflex,was treated with clindamycin as outpt (3) CAD (coronary artery disease) Comment: - Hx of CAD with stents in 2013 - Only on ASA. 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 - Now recent dx of "extensive B/L DVT's" - Case was discussed with Heme last hospitalization, no need for hypercoagulable workup as the treatment won't change, he will require life long anticoagualtion for unprovoked DVT. Recommended age appropriate cancer screenings, which patient has not had a colonoscopy. - CTA - no PE but was a poor study and d/t LE edema obtain an echo to assess right heart function - Continue Lovenox BID and hold coumadin for now until endoscopy (5) History of psychiatric disorder Comment: - Per [facility] nursing staff significant psych hx with aggressive behavior, hx has of stealing pens and swallowing them. (6) DVT prophylaxis Comment: - lovenox Q12 hour; hold coumadin (7) Full code status Comment: Status and Disposition: Inpatient. Discharge to [place].
[2018-05-23] MEDS: PARoxetine HCL TAB* 40 MG PO SCH (08:35)
[2018-05-23] MEDS: Omeprazole CAP* 20 MG PO SCH (08:35)
[2018-05-23] MEDS ORDERED: Propofol* 10 MG/ML 20 ML BTL IV PUSH ONE (08:48)
[2018-05-23] MEDS ORDERED: Lidocaine 2% PF * 5 ML VIAL ONE (08:49)
[2018-05-23] MEDS ORDERED: Mivacurium Chloride* 20 MG/10 ML VIAL IV ONE (08:58)
[2018-05-23] MEDS ORDERED: Phenylephrine IV* 40 MCG/ML 10 ML SYRINGE ONE (09:16)
[2018-05-23 12:26] VITALS: BP 108/71
--- NOTE | 2018-05-26 04:29 | DS ---
CC: Providers at [facility] * HOSPITAL MEDICINE DISCHARGE SUMMARY: DATE OF ADMISSION: 05/20/18 DATE OF DISCHARGE: 05/23/18 ATTENDING PHYSICIAN: Dr. Chau Wilson * (dictation provided by Livia Coughlin NP) PRIMARY DIAGNOSES: 1. Sepsis, with systemic inflammatory response syndrome criteria x2. 2. Right lower extremity cellulitis, now resolved. 3. Swallowed foreign body, spoon removed from stomach. 4. Mild acute kidney injury, resolved. 5. Hypothyroidism, newly diagnosed. SECONDARY DIAGNOSES: 1. History of bilateral lower extremity DVTs, diagnosed 04/10/18. 2. Coronary artery disease, status post stent placement x2 in 2013. 3. Bilateral shoulder replacements. 4. History of psych disorder with known history of swallowing objects. 5. Anemia. 6. IVC filter. MEDICATIONS: 1. Lovenox 90 mg subcutaneously b.i.d. until INR greater than 2 to 3 for 24 hours. 2. Warfarin 5 mg p.o. daily. 3. Omeprazole 10 mg p.o. daily. 4. Aspirin 81 mg p.o. daily. 5. Tylenol 650 mg p.o. q.6 hours p.r.n. 6. Thorazine 50 mg p.o. q.a.m. and 75 mg p.o. q.p.m. 7. Boost 237 mL p.o. b.i.d. 8. Paroxetine 40 mg p.o. q.a.m. 9. Divalproex ER 750 mg q.p.m. and 500 mg p.o. q.a.m. 10. Keflex 500 mg p.o. q.i.d. x5 days. 11. Levothyroxine 75 mcg p.o. daily. HOSPITAL COURSE: Mr. Alicia is a 52-year-old prisoner from [facility], who presented to the hospital on 05/20/18 with concern for right lower extremity swelling and redness with associated tachycardia and tachypnea. Please see the dictated H and P from Joyce Winters NP from complete details. In brief, the patient had been diagnosed with extensive bilateral DVTs in March 2018. He was continued on Coumadin therapy for that. The patient report that about 3 weeks prior to admission, he developed right lower extremity pain with some redness. He was treated with clarithromycin, but when that medication was completed, he again noticed the redness and edema to the right lower extremity. The patient also reported that he had swallowed a plastic spoon about a month prior and "when my stomach is empty I can feel the spoon moving around my stomach." Mr. Alicia had labs which were unremarkable except for a mild acute kidney injury with BUN of 30 and the creatinine of 1.32. The patient also had a mild lactic acidosis with the lactic acid of 3.0. Other abnormalities noted were TSH 8.52 with a free T4 of 0.59. The patient was started on Zosyn initially and then transitioned over to ceftriaxone. Mr. Alicia' cellulitis resolved quickly. There is no further erythema, but he does have bilateral lower extremity edema likely secondary to his extensive DVTs. He will be continuing on anticoagulation therapy and on Keflex for 5 days. Mr. Alicia also had report of swallowing a spoon outpatient. He ultimately went on for an abdomen and pelvis CT on 05/22/18 which did confirm that there was a spoon shaped object in the stomach. He had a consultation by Dr. Caballero [facility] and I will refer to his notes for complete details, but he recommends the patient has his warfarin held until his INR was less than 1.4 at which time, he could go on for an endoscopy procedure to remove the spoon. The patient was given vitamin K x1 and his INR today is 1.29. He went for the endoscopy procedure and the spoon was retrieved. Mr. Alicia is now on Lovenox 90 mg subcutaneously b.i.d. and we will continue on that as we resume warfarin, he should continue the Lovenox until his INR is greater than 2 to 3 for 24 hours. The remainder of Mr. Alicia' workup included the following: A transthoracic echocardiogram that showed an ejection fraction of 55% to 60% with no changes from previous in March 2018. He had chest thorax CTA which showed the following ; "no definite pulmonary embolus is noted, although evaluation is limited due to poor opacification of the pulmonary arteries. No evidence of aortic dissection." Of note that his acute kidney injury resolved and his BUN is 17 and creatinine 0.94 today. Also, his lactic acidosis resolved, his lactic acid is 1.4 and his tachycardia and tachypnea resolved. His vitals were stable. Mr. Alicia is medically stable for discharge to home. He will continue on Keflex to complete treatment for his cellulitis of his right lower extremity. He will continue on Lovenox, his bridging therapy until his INR is therapeutic. During this hospitalization, Mr. Alicia was started on levothyroxine for his elevated TSH and low T4. He should have a followup TSH in 6 weeks. DISPOSITION: [place]. DIET: Regular. ACTIVITY: As tolerated. FOLLOWUP PLANS: Please follow up with the providers at [facility] regarding ongoing monitoring of INR every 24 to 48 hours and repeat TSH in 6 weeks. TIME SPENT: Approximately 60 minutes were spent on the discharge of this patient, more than half the time was spent with the patient at the bedside reviewing the events leading up to and during this hospitalization, performing the physical examination, and reviewing my plan of care. LIVIA COUGHLIN NP [id number]/[facility] #: [id number] RYAN
--- NOTE | 2018-05-26 23:41 | PRO ---
DATE OF PROCEDURE: 05/23/18 - ROOM #404 PROCEDURE: EGD with foreign body removal. INDICATION: Gastric foreign body. SEDATION GIVEN: General anesthesia. DESCRIPTION OF PROCEDURE: After the EGD procedure including risks, benefits, and alternatives not limited to perforation, surgery, and/or were explained to Mr. Alicia, written consent was then obtained, IV medication was given by anesthesia, and a bite-block was placed between the teeth. An Olympus gastroscope was then inserted into the patient's mouth, advanced down the esophagus, into the stomach, into the distal duodenum. In the esophagus, at the GE junction, Z-line was intact. No erosive esophagitis, stricture, or ring was seen. The scope was advanced through the GE junction into body of the stomach. Retroflex view was unremarkable. Forward view did reveal a spoon. Scope was advanced through a widely patent pylorus, into the duodenal bulb, into the distal duodenum. The scope was then withdrawn into the patient's stomach at which time a snare was placed down the scope and grasped the handle of the spoon. I was then able to successfully remove the spoon from the patient 's stomach and withdrew it from the patient. He tolerated the procedure well, was returned to the recovery room in stable condition. IMPRESSION: 1. Complete upper endoscopy into the distal duodenum with gastric foreign body removal. 2. Gastric foreign body, spoon, removed with snare. [id number]/[facility] #: [id number] MTDD
== END 2018-05-23 14:25 | DRG 720 ==
LOC: ED 11:32 → EEVIPCON 18:37 → MED 18:37 → OBSVTOIN 05-22 10:15
PROVIDERS: ADMIT Hospitalist; ATTEND Internal Medicine
PROC: 0DC68ZZ Extirpation of Matter from Stomach, Via Natural or Artificial Opening Endoscopic (ICD-10-PCS; principal; 2018-05-23 08:30)
DX: A41.9 Sepsis, unspecified organism (principal); L03.115 Cellulitis of right lower limb; N17.9 Acute kidney failure, unspecified; E03.9 Hypothyroidism, unspecified; T18.2XXA Foreign body in stomach, initial encounter; X79.XXXA Intentional self-harm by blunt object, initial encounter; R60.0 Localized edema; I25.10 Atherosclerotic heart disease of native coronary artery without angina pectoris; D50.9 Iron deficiency anemia, unspecified; I11.9 Hypertensive heart disease without heart failure; F31.9 Bipolar disorder, unspecified; Z96.612 Presence of left artificial shoulder joint; Z96.611 Presence of right artificial shoulder joint; Y92.149 Unspecified place in prison as the place of occurrence of the external cause; Z95.5 Presence of coronary angioplasty implant and graft; Z79.01 Long term (current) use of anticoagulants; Z86.718 Personal history of other venous thrombosis and embolism; Z79.1 Long term (current) use of non-steroidal anti-inflammatories (NSAID); Z79.82 Long term (current) use of aspirin; Z79.899 Other long term (current) drug therapy; Z88.8 Allergy status to other drugs, medicaments and biological substances; Z82.49 Family history of ischemic heart disease and other diseases of the circulatory system; Z87.891 Personal history of nicotine dependence; M25.512 Pain in left shoulder; M25.511 Pain in right shoulder
CPT/HCPCS: 36415; 71275; 74019; 74176; 80048; 80053; 81003; 82272; 82550; 82553; 82570; 83605; 83735; 83880; 84300; 84439; 84443; 84479; 84484; 85025; 85610; 85730; 86140; 87040; 87641; 93005; 93306; 99285; A9270-GY; G0378; J0696; J1650; J2250; J2270; J2543; J2704; J3010; Q9967

== ENCOUNTER 2018-06-05 15:47 | Observation (INO) | payer OTHER ==
[2018-06-05 17:23] LABS: ABS Basophils 0.1 10^3/ul (0-0.2); ABS Eosinophils 0.1 10^3/ul (0-0.6); ABS Lymphocytes 2.1 10^3/ul (1.0-4.8); ABS Monocytes 1.5 10^3/ul (0-0.8); ABS Neutrophils 5.1 10^3/ul (1.5-7.7); ABS Nucleated RBC 0 10^3/ul; Eosinophil % 1.4 % (0-6); Hematocrit 33 % (42-52); Hemoglobin 10.5 g/dl (14.0-18.0); Lymphocyte % 23.9 % (25-47); Mean Corpuscular HGB Conc 32 g/dl (31-36); Mean Corpuscular Hemoglobin 25 pg (27-31); Mean Corpuscular Volume 78 fL (80-94); Mean Platelet Volume 8.4 um3 (7.4-10.4); Nucleated Red Blood Cells % 0.1; Platelet Count 330 10^3/ul (150-450); Red Cell Distribution Width 20 % (10.5-15); White Blood Count 8.9 10^3/ul (3.5-10.8)
--- NOTE | 2018-06-05 17:43 | RAD ---
INDICATION: Chest pain COMPARISON: April 15, 2018 TECHNIQUE: An AP portable view obtained at 1724 hours is submitted. FINDINGS: Bones/Soft Tissues: There are no acute bony findings. There is bilateral shoulder arthroplasty Cardiomediastinal: The cardiomediastinal silhouette is normal. Lungs: There are no infiltrates. Pleura: There are no pleural effusions. Other: None IMPRESSION: NO ACTIVE DISEASE.
[2018-06-05 17:45] LABS: EGFR Non-African American 61.9 (>60)
[2018-06-05] MEDS ORDERED: NS 0.9% 1000 ML* 1,000 ML IV ONE (18:33)
[2018-06-05] MEDS ORDERED: oxyCODONE/Acetamin 5/325 MG* TAB PO ONE (18:36)
[2018-06-05] MEDS ORDERED: Furosemide IV* 10 MG/ML VIAL (40 MG) IV SLOW PU ONE (18:38)
--- NOTE | 2018-06-05 18:39 | ED ---
HPI Chest Pain - HPI Summary HPI Summary: This is [facility] documenting for attending Sabino Kong MD. Pt is a 52 y/o M c/o bilateral LE pain and CP. LE pain is described as being sharp and rated a 9/10, per triage. CP, onset this AM, is described as intermittent in the morning; worse and constant now. Assoc. Sx: Bilat LE swelling/redness, CP, N/V/D x1 day, dizziness, lightheaded. Denies: anxiety. Pt reports that nothing alleviates the swelling or CP. Aggr. Factors: standing: increases swelling. He reports being treated for unilateral cellulitis with ABX ~2 weeks ago. Cellulitus reoccurred in bilateral LE radiating up past knees. He reports that the R leg is worse than the Left and that CP may be linked to leg swelling. I, Dr. Kong, personally performed the services described in this documentation as scribed in my presence and it is both accurate and complete. - History of Current Complaint Chief Complaint: EDChestPainROMI Time Seen by Provider: 06/05/18 16:56 Hx Obtained From: Patient Onset/Duration: Started Weeks Ago, Still Present, Worse Since - recently Timing: Constant Current Severity: Severe Pain Intensity: 9 Pain Scale Used: 0-10 Numeric Chest Pain Location: Diffuse Chest Pain Radiates: No Aggravating Factor(s): Other: - POS: Standing Alleviating Factor(s): Nothing Associated Signs and Symptoms: Positive: Dizziness, Lightheadedness, Nausea, Calf Pain/Swelling, Vomiting, Edema - bilat LE, Other: - POS: diarrhea, LE redness. Negative: Anxiety - Additional Pertinent History Primary Care Physician: [id number] - Allergy/Home Medications Allergies/Adverse Reactions: Allergies Allergy/AdvReac Type Severity Reaction Status Date / Time ketorolac [From Toradol] Allergy Abdominal Verified 06/05/18 15:52 Pain PMH/Surg Hx/FS Hx/Imm Hx Endocrine/Hematology History: Reports: Hx Anticoagulant Therapy Denies: Hx Diabetes Cardiovascular History: Reports: Hx Angina, Hx Congestive Heart Failure, Hx Coronary Artery Disease, Hx Deep Vein Thrombosis, Hx Hypercholesterolemia, Hx Myocardial Infarction Denies: Hx Hypertension, Hx Valvular Heart Disease Comment Only: Hx Embolism - 2013 Respiratory History: Reports: Hx Chronic Obstructive Pulmonary Disease (COPD), Hx Pulmonary Embolism Denies: Hx Asthma GI History: Reports: Hx Gastroesophageal Reflux Disease History: Denies: Hx Renal Disease Musculoskeletal History: Reports: Hx Orthopedic Injury - Right humerus fx 2018, Other Musculoskeletal History - fractured right humerus Sensory History: Reports: Hx Contacts or Glasses Denies: Hx Hearing Aid Opthamlomology History: Reports: Hx Contacts or Glasses Neurological History: Reports: 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, Other Neuro Impairments /Disorders - TBI Psychiatric History: Reports: Hx Bipolar Disorder - Surgical History Surgery Procedure, Year, and Place: BILAT TSAs - Immunization History Immunizations Up to Date: Yes Infectious Disease History: No Infectious Disease History: Denies: Hx Clostridium Difficile, Hx Hepatitis, Hx Human Immunodeficiency Virus (HIV), Hx of Known/Suspected MRSA, Hx Shingles, Hx Tuberculosis, Traveled Outside the [place] in Last 30 Days - Family History Known Family History: Positive: Cardiac Disease - Father: triple bypass, Blood Disorder - PE - Social History Occupation: Unemployed Lives: Assisted Living Alcohol Use: None Substance Use Type: Reports: None Smoking Status (MU): Former Smoker Review of Systems Positive: Other - POS: dizziness, lightheadedness, bilat LE redness.. Negative : Fever, Chills, Fatigue, Skin Diaphoresis Negative: Photophobia, Blurred Vision, Diplopia, Drainage, Erythema Negative: Epistaxis, Dental Pain, Sore Throat, Ear Ache, Nasal Discharge Positive: Chest Pain. Negative: Palpitations Negative: Shortness Of Breath, Cough Positive: Vomiting, Diarrhea, Nausea. Negative: Abdominal Pain Positive: Edema - bilat LE. Negative: Arthralgia, Myalgia, Decreased ROM Negative: Rash, Bruising Negative: Headache, Weakness, Paresthesia, Numbness, Syncope, Slurred Speech Negative: Anxious All Other Systems Reviewed And Are Negative: Yes Physical Exam - Summary Physical Exam Summary: Constitutional: Well-developed, Well-nourished, Alert. (-) Distressed Skin: Warm, Dry HENT: Normocephalic; Atraumatic Eyes: Conjunctiva normal Neck: Musculoskeletal ROM normal neck. (-) JVD, (-) Stridor, (-) Tracheal deviation Cardio: Rhythm regular, rate normal, Heart sounds normal; Intact distal pulses; The pedal pulses are 2+ and symmetric. Radial pulses are 2+ and symmetric. (-) Murmur Pulmonary/Chest wall: Effort normal. (-) Respiratory distress, (-) Wheezes, (-) Rales Abd: Soft, (-) epigastric tenderness, (-) Distension, (-) Guarding, (-) Rebound Musculoskeletal: (-) Edema Lymph: (-) Cervical adenopathy Neuro: Alert, Oriented x3 Psych: Mood and affect Normal Triage Information Reviewed: Yes Vital Signs On Initial Exam: Initial Vitals Temp Pulse Resp BP Pulse Ox 98.3 F 115 20 126/78 97 06/05/18 15:48 06/05/18 15:48 06/05/18 15:48 06/05/18 15:48 06/05/18 15:48 Vital Signs Reviewed: Yes Diagnostics - Vital Signs Vital Signs Temp Pulse Resp BP Pulse Ox 06/05/18 18:00 24 06/05/18 17:23 22 114/84 06/05/18 17:00 93 28 77/40 96 06/05/18 16:58 96 23 96 06/05/18 15:48 98.3 F 115 20 126/78 97 - Laboratory Lab Results: Lab Results 06/05/18 06/05/18 06/05/18 Range/Units 17:13 17:13 17:13 WBC 8.9 (3.5-10.8) 10^3/ul RBC 4.20 (4.00-5.40) 10^6/ul Hgb 10.5 L (14.0-18.0) g/dl Hct 33 L (42-52) % MCV 78 L (80-94) fL MCH 25 L (27-31) pg MCHC 32 (31-36) g/dl RDW 20 H (10.5-15) % Plt Count 330 (150-450) 10^3/ul MPV 8.4 (7.4-10.4) um3 Neut % (Auto) 57.2 (38-83) % Lymph % (Auto) 23.9 L (25-47) % Haskell % (Auto) 16.7 H (0-7) % Eos % (Auto) 1.4 (0-6) % Baso % (Auto) 0.8 (0-2) % Absolute Neuts (auto) 5.1 (1.5-7.7) 10^3/ul Absolute Lymphs (auto) 2.1 (1.0-4.8) 10^3/ul Absolute Monos (auto) 1.5 H (0-0.8) 10^3/ul Absolute Eos (auto) 0.1 (0-0.6) 10^3/ul Absolute Basos (auto) 0.1 (0-0.2) 10^3/ul Absolute Nucleated RBC 0 10^3/ul Nucleated RBC % 0.1 Sodium 135 (135-145) mmol/L Potassium 4.4 (3.5-5.0) mmol/L Chloride 104 (101-111) mmol/L Carbon Dioxide 25 (22-32) mmol/L Anion Gap 6 (2-11) mmol/L BUN 22 (6-24) mg/dL Creatinine 1.22 H (0.67-1.17) mg/dL Est GFR ( Amer) 74.9 (>60) Est GFR (Non-Af Amer) 61.9 (>60) BUN/Creatinine Ratio 18.0 (8-20) Glucose 106 H (70-100) mg/dL Lactic Acid 1.3 (0.5-2.0) mmol/L Calcium 8.9 (8.6-10.3) mg/dL Total Bilirubin 0.30 (0.2-1.0) mg/dL AST 17 (13-39) U/L ALT 10 (7-52) U/L Alkaline Phosphatase 90 (34-104) U/L Troponin I 0.03 (<0.04) ng/mL Total Protein 7.0 (6.4-8.9) g/dL Albumin 3.9 (3.2-5.2) g/dL Globulin 3.1 (2-4) g/dL Albumin/Globulin Ratio 1.3 (1-3) Result Diagrams: 06/05/18 17:13 06/05/18 17:13 Lab Statement: Any lab studies that have been ordered have been reviewed, and results considered in the medical decision making process. - Radiology CXR Xray Interpretation: No Acute Changes - IMPRESSION: NO ACTIVE DISEASE. Radiology Interpretation Completed By: Radiologist - Report has been reviewed by Provider and radiologist. Chest Pain Course/Dx - Course Course Of Treatment: Pt was seen regarding treatment. Provider ordered pain medications for patient and he will stay the night. - Diagnoses Provider Diagnoses: Chest pain, unspecified, Peripheral edema Discharge - Sign-Out/Discharge Documenting (check all that apply): Patient Departure - Discharge Plan Condition: Stable Disposition: ADMITTED TO [facility]
[2018-06-05] MEDS ORDERED: Aspirin 81 mg CHEW TAB* 81 MG TAB.CHEW PO ONE (18:46)
--- NOTE | 2018-06-05 19:33 | RAD ---
INDICATION: Pain and swelling. History of extensive, bilateral DVT COMPARISON: April 10, 2018 TECHNIQUE: Duplex interrogation of the right lowerextremity was performed. FINDINGS: Deep veins: The common femoral, great saphenous, profunda femoris, proximal, mid, and distal deep femoral, popliteal, posterior tibial, and peroneal veins were interrogated. The common femoral vein is partially compressible. The great saphenous profunda femoris veins are compressible demonstrating normal augmentation phasic flow. The remainder of the deep venous system contains occlusive thrombus. There is also occlusive thrombus in the left common femoral vein Superficial veins: There are no findings of superficial thrombophlebitis. Popliteal fossa:There is no evidence of a popliteal cyst. Soft tissues:There is dependent edema.. IMPRESSION: EXTENSIVE THROMBUS IS AGAIN IDENTIFIED. THE ONLY SIGNIFICANT CHANGE FROM THE PRECEDING EXAMINATION IS THAT THERE IS PARTIAL RECANALIZATION OF THE COMMON FEMORAL VEIN. IT IS NOT KNOWN WHETHER THE PATIENT DID NOT RESPOND TO ANTICOAGULANT THERAPY OR WHETHER THIS ALL REPRESENTS CHRONIC THROMBOSIS.
[2018-06-05] MEDS ORDERED: HYDROmorphone INJ* 2 MG/ML CARPUJECT SYRINGE IV SLOW PU ONE (20:31)
[2018-06-05] MEDS ORDERED: Ondansetron INJ* 2 MG/ML VIAL IV PRN (20:32)
[2018-06-05] MEDS ORDERED: Acetaminophen TAB* 325 MG PO PRN (20:32)
[2018-06-05] MEDS ORDERED: oxyCODONE/Acetamin 5/325 MG* TAB PO PRN (20:32)
[2018-06-05] MEDS ORDERED: Iohexol 350* (CONTRAST) 500 ML MDV IV ONE (20:34)
[2018-06-05 20:39] LABS: INR 1.23 (0.77-1.02)
[2018-06-05] MEDS ORDERED: hydrOXYzine HCL TAB* 25 MG PO PRN (20:49)
[2018-06-05] MEDS ORDERED: Metoclopramide IV* 5 MG/ML 2 ML VIAL IV SLOW PU PRN (20:50)
[2018-06-05] MEDS ORDERED: Divalproex DR TAB(*) 250 MG PO SCH (21:00)
[2018-06-05] MEDS ORDERED: LACTOSE REDUCED FOOD PO SCH (21:00)
[2018-06-05] MEDS ORDERED: chlorproMAZINE TAB* 50 MG PO SCH (21:00)
[2018-06-05] MEDS ORDERED: Divalproex ER TAB(*) 500 MG PO SCH (21:00)
[2018-06-05] MEDS: Enoxaparin(*) 100 MG/ML SYR SUBCUT SCH (23:13)
[2018-06-05] MEDS: Warfarin TAB(*) 5 MG PO SCH (23:15)
--- NOTE | 2018-06-05 23:18 | RAD ---
EXAM: CT Angiography Chest With Intravenous Contrast CLINICAL HISTORY: 52 years old, male; Signs and symptoms; Shortness of breath; Additional info: Concern for pe, pt injected twice due to timing, breathing changed for second injection still no success with dalia, screen shots sent TECHNIQUE: Axial computed tomographic angiography images of the chest with intravenous contrast using pulmonary embolism protocol. MIP reconstructed images were created and reviewed. Coronal and sagittal reformatted images were created and reviewed. COMPARISON: CTA CHEST CTA CHEST 2018-05-20 14:01 FINDINGS: Pulmonary arteries: Suboptimal bolus timing for pulmonary embolism evaluation. No findings of right heart strain. Aorta: Atherosclerotic calcification. Lungs: Unremarkable. No mass. No consolidation. Pleural space: Unremarkable. No significant effusion. No pneumothorax. Heart: Unremarkable. No cardiomegaly. No significant pericardial effusion. No evidence of RV dysfunction. Coronary artery calcifications are present. Bones/joints: Bilateral shoulder arthroplasty hardware is present. No acute fracture. No dislocation. Soft tissues: Unremarkable. Lymph nodes: Unremarkable. No enlarged lymph nodes. Kidneys and ureters: Right renal cyst measuring approximately 35 mm. The results of this examination were discussed with Carlita Sosa nurse practitioner. IMPRESSION: NO ACUTE FINDINGS ALTHOUGH THE STUDY IS NONDIAGNOSTIC FOR PULMONARY EMBOLISM DUE TO SUBOPTIMAL TIMING OF CONTRAST. IF THERE IS CONCERN FOR PULMONARY EMBOLI CONSIDER A NUCLEAR MEDICINE VENTILATION/PERFUSION SCAN.
--- NOTE | 2018-06-06 | HP ---
CC: [facility]* MEDICINE HISTORY AND PHYSICAL: DATE OF ADMISSION: 06/05/18 PROVIDER: Fito Alonso NP ATTENDING PHYSICIAN: Dr. Nayana Cooley* (as dictated by Fito Alonso NP) PRIMARY CARE PROVIDER: [facility]. CHIEF COMPLAINT: Chest pain and lower extremity swelling. HISTORY OF PRESENT ILLNESS: Mr. Alicia is a 52-year-old gentleman, who resides at [facility]. He was recently admitted from through 05/23/18 with concern for sepsis secondary to right lower extremity cellulitis and a swallowed foreign body. He was also hospitalized from our facility from 04/15/18 through 04/17/18 for atypical chest pain. He has a history of deep vein thrombosis in the bilateral lower extremities for which he receives anticoagulation. He presents today with concern for worsening edema and pain to the lower extremities as well as chest pain. He states that he has had concern since being diagnosed with right lower extremity cellulitis and reports good response to antibiotics. When he had finished his course of antibiotics, he noted that his legs felt better but, subsequently, it became worse again. He reports that both his legs and feet have become more red and edematous. He notes swelling to top of his thighs and states that the symptoms worsen when he is up walking around where he notes worsening edema and redness. He also describes chills and fever that started last evening. He reports last evening that he had sudden onset of diarrhea and vomiting with abdominal pain and reports 6 to 7 episodes of diarrhea and 4 to 5 episodes of vomiting overnight until this morning. Yesterday, he reports that he ate "some kind of spicy Tu meat." This morning, he was able to eat a small amount of corn flakes and tolerate that. In general, he reports decreased p.o. intake and appetite. He does admit to swallowing of plastic spoon approximately 7 to 8 weeks ago when his son as a "way to get attention." He states he was acting out because of anxiety and grief. The spoon was removed at his last hospital stay. He denies swallowing any other foreign bodies and states that he will not be doing this again. He also reports intermittent chest pain and pressure to the mid chest that started a couple days ago. He states when he exerts himself the chest pain comes on more regularly. He notes that his heart rate becomes very fast. He becomes very concerned about this. He also notes that he becomes very dyspneic with exertion with accompanied chest pain. He has occasional diaphoresis. It does resolve with rest. He denies hemoptysis. Her in the ER, the patient was evaluated. CBC was mostly unremarkable, although he does have some monocytosis and lymph response, which would be consistent with viral illness. His INR is subtherapeutic at 1.23, and he does have acute kidney injury which is slightly above his baseline, with a creatinine of 1.22. His first and second troponin was 0.03 and CRP of 3.29. He was felt to be fluid overloaded. He was given one dose of Lasix as well as some aspirin. He did have a venous Doppler study, which did show presence of bilateral blood clots as well as extensive thrombus of the right lower extremity with partial recannulization of the common femoral vein. Chest x-ray reviewed and shows no evidence of infiltrate or congestion or active disease. Given the patient's history and presentation, hospital medicine was consulted for admission. PAST MEDICAL HISTORY: Include: 1. Bilateral lower extremity extensive DVTs, diagnosed on 04/10/18. 2. Coronary artery disease status post 2 stent placements in 2013. 3. Bilateral shoulder replacement. 4. Anemia. 5. 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 6. IVC filter placement. 7. Hypothyroidism. HOME MEDICATIONS: 1. Depakote ER 500 mg q.a.m. and 750 mg q.p.m. 2. Aspirin 81 mg daily. 3. Acetaminophen 650 mg q.6 hours p.r.n. 4. Warfarin 5 mg daily. 5. Paroxetine 40 mg q.a.m. 6. Omeprazole 20 mg daily. 7. Levothyroxine 75 mcg q.a.m. 8. Boost 237 mL b.i.d. 9. Thorazine 50 mg q.a.m. and 35 mg q.p.m. ALLERGIES: Include TORADOL. FAMILY HISTORY: Reports coronary artery disease with history of NJ in father and uncle. SOCIAL HISTORY: He endorses a remote history of smoking over 20 years ago. He denies any alcohol or illicit drug use. He is currently incarcerated at [facility] who also acts as his additional emergency contact. REVIEW OF SYSTEMS: A 12-point review of systems was completed. All pertinent positives and negatives as per HPI. All others not mentioned are negative. PHYSICAL EXAMINATION GENERAL: This is a very pleasant interactive well-developed, 52-year-old male, who is sitting up in emergency department stretcher, in no acute distress. He does appear to be anxious. VITAL SIGNS: Temperature 98.3, pulse rate 115, respiratory rate 20, blood pressure 132/97, and O2 saturation 96% on room air. HEENT: Head is normocephalic. There is an old healing scar to top of the head. It is clean, dry, and intact. It is mildly erythmatous but nontender and without streaking, drainage, or warmth. Pupils are equal, round, and reactive to light and accommodation. Extraocular movements are intact. Oral mucosa is moist. There is no oropharyngeal erythema or exudate. NECK: Supple. No JVD noted. LUNGS: Clear to auscultation bilaterally with good aeration throughout. No adventitious lung sounds noted. CARDIAC: Normal S1 and S2 heart sounds. Regular rate and rhythm. Rate is tachycardiac. No murmurs, rubs, or gallops appreciated. ABDOMEN: Soft, nontender. It is distended. Bowel sounds are normoactive throughout. There is no guarding or rebound tenderness. No CVA tenderness. MUSCULOSKELETAL: Extremities, no clubbing or cyanosis. Bilateral lower extremity edema with right greater than left. There is pitting edema from the foot to the thigh with minimal edema to the top of the thighs. Right lower extremity has 2+ to 3+ edema and left lower extremity has 2+ edema. There is some mild erythema that is dependent to the feet and ankles in lower legs that does improve with elevation. No open areas noted. Distal pulses are present and 1+. There is brisk capillary refill. NEUROLOGIC: Cranial nerves II through XII are grossly intact. He is able to move all extremities. Sensation is intact to light touch to the lower extremities. He is alert and oriented x3. PSYCHIATRIC: He is anxious. Good eye contact is made. Speech is fluent and appropriate to conversation. SKIN: Appears grossly intact. DIAGNOSTIC STUDIES/LAB DATA: CBC: WBC 8.9, hemoglobin 10.5, hematocrit 33, platelet count 330. INR is 1.23. CMP: Sodium 135, potassium 4.4, chloride 104 , carbon dioxide 25, BUN 22, creatinine 1.22, glucose 106, lactic acid 1.3, calcium 8.9. Total bilirubin 0.3, AST 17, ALT 10, alk phos 90. Troponin 0.03. CRP 3.29. EKG reviewed shows sinus tachycardia with no significant ST or T wave changes. Chest x-ray and venous Doppler study as per above. ASSESSMENT AND PLAN: This is a 52-year-old male presents today with concern for edema and chest pain. He does have a known history of DVTs. He will be admitted under observation status. Plan is as follows: 1. Bilateral lower extremity deep vein thrombosis with edema. I did discuss with this patient the pathophysiology of deep vein thrombosis and the recovery period. We talked at length about the appropriate medications including Lovenox and warfarin and why we were using these as well as edema and dependent erythema and fluid. He has been advised to continue elevate his extremities when possible. We discussed that since he has been several weeks out from his initial diagnosis that we could attempt to try HIEN hose at this point to help with compression and fluid mobilization. He does have a [place] filter. He does state that he takes his Coumadin every day; however, the nursing notes state that [facility] staff reports that he drops his pills down the drain because he likes to come to the hospital. He states he is very concerned about the leg swelling and getting another infection. At this point in time, his legs do not appear to be actively infected and the erythema does improve with elevation. We discussed signs and symptoms to monitor at the facility; we also discussed the risk of worsening clot burden and compartment syndrome if not taking warfarin. At this point in time, he is subtherapeutic, so we will restart him on b.i.d. Lovenox and continue to follow his INR. 2. Edema. The patient does have extensive edema from the feet to the thighs and questionably in the abdomen. He has received one dose of Lasix. We will cautiously give another dose of Lasix in the morning to help with fluid mobilization in addition to his HIEN hose for the diuresis at the discretion of the provider given the patient's renal function and fluid status. Daily weights ordered. 3. Acute on chronic kidney injury. He does appear to have a slightly elevated creatinine at baseline, although I suspect that he does have acute kidney injury that may be secondary to dehydration. However, he does have some fluid overload. He does not appear to be significantly dry. We will follow his renal function in the morning. He is appropriately responding to the Lasix. I would like to hold off on IV fluids at this time, given his edema. He has been encouraged to drink fluids in the interim. 3. Chest pain. He has 2 negative troponins. He has third troponin trended. EKG is unremarkable. I suspect his chest pain may be secondary to coronary artery disease and anxiety. He may also be reacting to his tachycardia. In review of past records, it appears he had a stress test with perfusion defects thought to be secondary to previous NJ, as well as an unremarkable echocardiogram. Medical management was recommended. However, due to his tendency to have low blood pressures, he has been unable to tolerate beta- blockers or antianginal medications in the past. He is currently denying chest pain. We will continue to follow this and treat appropriately as needed. We could consider retrying other antianginal medications or a beta-enrique during his time here, should the chest pain persist. 4. Tachycardia. I do note that he had a CT during his last admission that was limited due to image quality for evaluation of pulmonary embolism. He is already being treated should he actually have a pulmonary embolism with the Coumadin. However, it would be worthwhile to determine if some of his symptoms may be attributed to pulmonary embolism, given his significant clot burden in the lower extremities and subtherapeutic INR. He also is endorsing quite a bit of pain and discomfort, which he states is unrelieved by Percocet. I will give him a 1 time dose of IV medication and then he will be maintained on Percocet with the option of p.r.n. morphine x3 doses if needed for severe pain. We did discuss that we were not going to utilize narcotics in the [facility], as this is not an appropriate long-term plan, but we will attempt to get his pain better controlled right now and continue monitoring this. I do suspect that his tachycardia is related to anxiety, as his monitor showed reduced his heart rate during the course of our conversation as he better understood his diagnoses and became calmer. We can trial hydroxyzine p.r.n. here for anxiety which he would be able to take at the facility to help manage his symptoms. We discussed this and this has been ordered for him. Another option for consideration is clonidine, with close monitoring of blood pressure and heart rate. 5. Abdominal distention. He is asking for food. He is no longer endorsing nausea, vomiting, or diarrhea. Last formed BM was 1-2 days ago. Will check KUB, as I suspect constipation. It appears less likely to be obstruction. 6. Anemia. This is chronic. It does appear to be stable with him and baseline. Outpatient followup is recommended with GI in order to have evaluation with colonoscopy. 7. Hypothyroidism. Continue levothyroxine. 8. History of psychiatric illness. Continue home regimen of Thorazine and Depakote and Paxil. 9. Fluids, electrolytes, and nutrition. He is ordered a heart healthy diet with no caffeine. 10. DVT prophylaxis. The patient is being treated for present deep vein thrombosis, and we will continue warfarin. He is subtherapeutic with his INR, so he will be continued on b.i.d. Lovenox until he reaches a therapeutic INR. 11. Code status. He is a full code. TIME SPENT: Time spent on this admission was approximately 65 minutes, more than half the time was spent [id number] with the patient obtaining history and physical, performing physical examination, and reviewing the plan of care. Plan of care was also reviewed with my attending, Dr. Cooley, who is in agreement. FITO ALONSO NP [id number]/CPS #: [id number] RYAN
[2018-06-06] MEDS: Morphine INJ* 2 MG/ML 1 ML SYRINGE (TWO MG - NEW SYRINGE VERSION) IV PRN ×3 (00:31→08:24)
[2018-06-06] MEDS: Omeprazole CAP* 20 MG PO SCH ×2 (05:25→08:14)
[2018-06-06] MEDS ORDERED: Levothyroxine TAB* 150 MCG TAB PO SCH (06:00)
[2018-06-06 06:03] LABS: INR 1.32 (0.77-1.02)
[2018-06-06 06:58] LABS: ABS Basophils 0 10^3/ul (0-0.2); ABS Eosinophils 0.2 10^3/ul (0-0.6); ABS Lymphocytes 2.3 10^3/ul (1.0-4.8); ABS Monocytes 1.3 10^3/ul (0-0.8); ABS Nucleated RBC 0 10^3/ul; Eosinophil % 3.3 % (0-6); Hematocrit 34 % (42-52); Hemoglobin 10.9 g/dl (14.0-18.0); Lymphocyte % 33.3 % (25-47); Mean Corpuscular HGB Conc 32 g/dl (31-36); Mean Corpuscular Hemoglobin 25 pg (27-31); Mean Corpuscular Volume 79 fL (80-94); Mean Platelet Volume 8.5 um3 (7.4-10.4); Nucleated Red Blood Cells % 0.3; Platelet Count 308 10^3/ul (150-450); Red Blood Count 4.33 10^6/ul (4.00-5.40); Red Cell Distribution Width 21 % (10.5-15); White Blood Count 6.9 10^3/ul (3.5-10.8)
[2018-06-06] MEDS ORDERED: Acetaminophen TAB* 325 MG PO SCH (07:00)
--- NOTE | 2018-06-06 07:26 | RAD ---
INDICATION: Abdominal distention. COMPARISON: Comparison is made with a prior study from May 22, 2018. TECHNIQUE: Frontal supine films of the abdomen were obtained. FINDINGS: The small bowel and colon appear nondistended. There is an inferior vena cava filter which projects to the right of the midline over the L4 vertebra. IMPRESSION: NO EVIDENCE FOR OBSTRUCTION. R1
[2018-06-06] MEDS ORDERED: Furosemide IV* 10 MG/ML VIAL (40 MG) IV SLOW PU SCH (08:00)
[2018-06-06] MEDS: Acetaminophen TAB* 325 MG PO SCH ×2 (08:13→15:49)
[2018-06-06] MEDS: Enoxaparin(*) 100 MG/ML SYR SUBCUT SCH (08:18)
[2018-06-06] MEDS ORDERED: Divalproex ER TAB(*) 500 MG PO SCH (09:00)
[2018-06-06] MEDS ORDERED: chlorproMAZINE TAB* 50 MG PO SCH (09:00)
[2018-06-06] MEDS ORDERED: PARoxetine HCL TAB* 40 MG PO SCH (09:00)
[2018-06-06] MEDS ORDERED: Aspirin 81 mg CHEW TAB* 81 MG TAB.CHEW PO SCH (09:00)
[2018-06-06] MEDS: oxyCODONE/Acetamin 5/325 MG* TAB PO PRN ×2 (11:31→17:11)
[2018-06-06 15:48] VITALS: BP 114/76
[2018-06-06] MEDS: Warfarin TAB(*) 5 MG PO SCH (16:02)
[2018-06-06] MEDS ORDERED: Warfarin TAB(*) 5 MG PO SCH (17:00)
--- NOTE | 2018-06-07 16:35 | DS ---
CC: [facility].* DISCHARGE SUMMARY: DATE OF ADMISSION: 06/05/18 DATE OF DISCHARGE: 06/06/18 PROVIDER: Carlita Allen NP ATTENDING PHYSICIAN: Dr. Lisbet Arnold * (dictated by Carlita Allen NP) PRIMARY CARE PROVIDER: [facility]. PRIMARY DIAGNOSES: 1. Chronic deep venous thromboses. 2. Pleuritic chest pain. SECONDARY DIAGNOSES: 1. Coronary artery disease with stent placement in 2013. 2. Anemia. 3. 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 4. IVC filter placement. 5. Hypothyroidism. 6. Extensive bilateral lower extremity deep venous thromboses, diagnosed on . STUDIES COMPLETED WHILE IN THE HOSPITAL: He had an x-ray of the chest, which showed no active disease. He had a venous Doppler of the right lower extremity, which showed extensive thrombus as again identified. There is only a significant change from the previous exam is that there is partial recannulization of the common femoral vein. It is not known whether the patient did not respond to anticoagulant therapy or whether this all represents chronic thrombosis. He had a CT of the chest and thorax that was nondiagnostic for pulmonary embolism. There was no pneumothorax, no significant effusions noted in the pleural space. There was no consolidation or lung masses noted. He had an abdominal x-ray on 06/05/18. Impression: No evidence of obstruction. His inferior vena cava filter is in place, which projects to the right of the midline over the left vertebra. He had an electrocardiogram, which showed sinus rhythm at a rate of 81. No ST changes. DISCHARGE MEDICATIONS: New medications: 1. Lovenox 90 mg subcu b.i.d. until INR is greater than 2, x48 hours. 2. Coumadin 7.5 mg p.o. daily x3 days until repeat INR and dosing needs to be adjusted thereafter. Continue home medications: 1. Depakote 750 mg p.o. q.p.m. 2. Depakote 500 mg p.o. q.a.m. 3. Aspirin 81 mg p.o. daily. 4. Acetaminophen 650 mg p.o. q.6 hours as needed. 5. Paxil 40 mg p.o. q.a.m. 6. Omeprazole 20 mg p.o. daily. 7. Levothyroxine 175 mcg p.o. at 8 a.m. 8. Lactulose-reduced foods, boost high protein b.i.d. 9. Thorazine 50 mg p.o. q.a.m. 10. Thorazine 75 mg p.o. q.p.m. HISTORY OF PRESENT ILLNESS AND HOSPITAL COURSE: Mr. Alicia is a 52-year-old gentleman, who currently resides at [facility], who was recently admitted on 05/20/18, to 05/23/18, with concerns of sepsis secondary to right lower extremity cellulitis and a swallowed foreign body. He was hospitalized at our facility from 04/15/18, to 04/17/18, for atypical chest pain. He has a history of deep vein thrombosis in the bilateral lower extremities for which he receives anticoagulation. He presents today with concerns of worsening edema and pain in his lower extremities as well as chest pain. He states that he had a concern since being diagnosed with lower extremity cellulitis and reports good response to antibiotics. He has finished the course of antibiotics and he noticed his legs felt better, but subsequently it became worse again. He reports that both legs and feet have become more red and edematous. He notes redness to the top of his thighs and states that the symptoms worsen when he is up walking around and he notes worsening edema and redness. He also describes chills and fever that started last evening. He reports last evening he had a sudden onset of diarrhea and vomiting with abdominal pain and reports about 6 to 7 episodes of diarrhea and 4 to 5 episodes of vomiting overnight until this morning. Yesterday, he reports that he ate some kind of spicy Tu meat. This morning, he was able to eat a small amount of corn flakes and tolerated that. In general, he reports decreased p.o. intake and appetite. He does admit to swallowing of a plastic spoon approximately 7 to 8 weeks ago when his son as a way to get attention. He states that he was acting out due to anxiety and grief. The spoon was removed during the last hospitalization. While in the emergency room, the patient had a venous Doppler study, which continues to show the extensive deep vein thrombosis in his right lower extremity. He does report that he takes his Coumadin daily; however, in the nursing notes from [facility], it does report that he drops his pills down the drain because he likes to come to the hospital. It was unclear if the patient is truly taking his Coumadin as prescribed. His INR is subtherapeutic on admission. REVIEW OF SYSTEMS: On the day of discharge, the patient does complain of bilateral lower rib pain with deep breaths. It is reproducible. He denies any chest pain. He denies any nausea, vomiting, or diarrhea. He does report he was able to eat and tolerate his breakfast without difficulty. His respirations are easy and even. He is not short of breath. He denies any fever or chills. He does continue to complain of some bilateral lower extremity swelling. He does report that the redness has subsided with elevation of his legs. PHYSICAL EXAMINATION: General: The patient is resting on the bed and respirations are easy and even. He is in no acute distress. HEENT: Head is atraumatic, normocephalic. Eyes: EOMs are intact. Sclerae anicteric and not pale. Lungs are clear to auscultation bilaterally. No wheezes, rales, or rhonchi. Cardiac: S1, S2. Regular rate and rhythm. There are no murmurs, rubs, or gallops. Abdomen is soft, nontender, and nondistended. Bowel sounds are active x4. There is no guarding noted. Musculoskeletal/Extremities: There is no clubbing or cyanosis. Bilateral lower extremities continue to have + 1 to +2 pitting edema to bilateral lower extremities. Distal pulses are +1 bilaterally. He has got brisk capillary refill. Neurologic: He is alert and oriented x3. Cranial nerves II through XII are intact. Sensation is intact to upper and lower extremities. Skin is grossly intact. There is no redness noted to bilateral lower extremities. Mr. Alicia is stable for discharge home today. Vital signs are as follows: Temperature was 97.7, heart rate was 84 to 91, respirations were 16 to 18, O2 saturation 97% on room air, blood pressure was 114/76. DISCHARGE PLAN: Mr. Alicia will be [facility]. Activity as tolerated. 1. Bilateral lower extremity DVTs. The patient will be placed on Coumadin 7.5 mg p.o. daily. He will be bridged with Lovenox 90 mg subcu q.12 hours until his INR is above 2.0 for 48 hours. These orders were conveyed to the nurse at [facility]. He did have a prescription for Lovenox filled through the hospital and the medication was sent with the patient to [facility]. He was advised of the need to continue on Coumadin and the importance of continuing this medication to prevent further formation of blood clots. The patient verbalized understanding. 2. Pleuritic chest pain: His CT of the chest was nondiagnostic. The patient does present with pleuritic chest pain. His O2 saturation on room air is 97%. He is not tachypneic. At this time, he is not presenting symptomatic with pulmonary embolism. If in fact he did have pulmonary embolism, the treatment for pulmonary embolism would be unchanged. He will continue on Coumadin and Lovenox bridge as this is the current recommendation for treatment of pulmonary embolism. The patient is hemodynamically stable and stable for discharge. 3. Coronary artery disease: He should continue on his previous home medications. 4. Psychiatric disorder: He should continue on his previous home medications. He should keep his legs elevated during the day. He should have a repeat INR on Saturday, should also have close monitoring of BUN and creatinine. He did have cardiac enzyme, troponin levels drawn during this hospitalization, which remained within normal limits. He had no EKG changes. He has had a recent stress test and at that time it was deemed that the patient should continue with medical management. The patient was instructed to return to the emergency room for any changes in his chest pain, increased shortness of breath, or any other concerning symptoms. The patient was also instructed to watch for black and tarry stools, vomiting blood. This is a summarization of his hospitalization. If further details are needed, please obtain his entire medical record. TIME SPENT: Time spent on this discharge was approximately 60 minutes, greater than half that time was spent with the patient discussing discharge plans and instructions. CONDITION ON DISCHARGE: Stable. I have discussed this with my attending, Dr. Lisbet Arnold, she is in agreement with my plan. CARLITA ALLEN, TIRE BUILDER [id number]/[facility] #: [id number] RYAN
== END 2018-06-06 19:00 ==
LOC: ED 15:47 → EEVIPCON 20:29 → MEDTELE 20:29
PROVIDERS: ADMIT Hospitalist; ATTEND Internal Medicine
DX: I82.501 Chronic embolism and thrombosis of unspecified deep veins of right lower extremity (principal); R07.9 Chest pain, unspecified; I25.10 Atherosclerotic heart disease of native coronary artery without angina pectoris; D64.9 Anemia, unspecified; R42 Dizziness and giddiness; R11.0 Nausea; M79.662 Pain in left lower leg; M79.661 Pain in right lower leg; F99 Mental disorder, not otherwise specified; E03.9 Hypothyroidism, unspecified; Z79.82 Long term (current) use of aspirin
CPT/HCPCS: 36415; 71045; 71275; 74018; 80048; 80053; 83605; 84484; 85025; 85610; 85730; 86140; 93005; 96374; 96375; 99284; A9270-GY; G0378; J1170; J1650; J1940; J2270; Q9967

== ENCOUNTER 2018-07-22 15:50 | Emergency (ER) | payer OTHER ==
[2018-07-22] MEDS ORDERED: HYDROmorphone INJ1* 1 MG/ML SYRINGE IV SLOW PU ONE (16:05)
[2018-07-22] MEDS ORDERED: HYDROmorphone INJ* 0.5 MG/0.5 ML SYRINGE IV SLOW PU ONE (16:06)
--- NOTE | 2018-07-22 16:31 | ED ---
Syncope/Near Syncope - HPI Summary HPI Summary: This patient is a 53 year old M BIBA to [facility] accompanied by alf guards s/p syncope that occurred at 0900. Today the patient states he had chest tightness, dizziness, SOB, and passed out. When he landed he his neck and spine. The patient rates the pain 10/10 in severity. Patient reports LE pain and edema, that is not new to this visit. Pt states he was dx with DVT and is on blood thinners about 2 months ago. The guard with his states the patient does this often and was supposed to transfer today - History Of Current Complaint Hx Obtained From: Patient Onset/Duration: Resolved Timing: Intermittent Episode Lasting Context: Unwitnessed Activity At Onset: At Rest Associated Head Trauma: No Alleviating Factor(s): Spontaneous Resolution Associated Signs And Symptoms: Other - chest tightness, dizziness, SOB, and passed out. - Allergies/Home Medications Allergies/Adverse Reactions: Allergies Allergy/AdvReac Type Severity Reaction Status Date / Time morphine Allergy Mild Itching Verified 07/22/18 16:04 ketorolac [From Toradol] Allergy Abdominal Verified 07/22/18 16:04 Pain PMH/Surg Hx/FS Hx/Imm Hx Endocrine/Hematology History: Reports: Hx Anticoagulant Therapy Denies: Hx Diabetes Cardiovascular History: Reports: Hx Angina, Hx Congestive Heart Failure, Hx Coronary Artery Disease, Hx Deep Vein Thrombosis, Hx Hypercholesterolemia, Hx Myocardial Infarction Denies: Hx Hypertension, Hx Valvular Heart Disease Comment Only: Hx Embolism - 2013 Respiratory History: Reports: Hx Chronic Obstructive Pulmonary Disease (COPD), Hx Pulmonary Embolism Denies: Hx Asthma GI History: Reports: Hx Gastroesophageal Reflux Disease History: Denies: Hx Renal Disease Musculoskeletal History: Reports: Hx Orthopedic Injury - Right humerus fx 2018, Other Musculoskeletal History - fractured right humerus Sensory History: Reports: Hx Contacts or Glasses Denies: Hx Hearing Aid Opthamlomology History: Reports: Hx Contacts or Glasses Neurological History: Reports: 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, Other Neuro Impairments /Disorders - TBI Psychiatric History: Reports: Hx Bipolar Disorder - Surgical History Surgery Procedure, Year, and Place: BILAT TSA Infectious Disease History: No Infectious Disease History: Denies: Hx Clostridium Difficile, Hx Hepatitis, Hx Human Immunodeficiency Virus (HIV), Hx of Known/Suspected MRSA, Hx Shingles, Hx Tuberculosis, Traveled Outside the [place] in Last 30 Days - Family History Known Family History: Positive: Cardiac Disease - Father: triple bypass, Blood Disorder - PE - Social History Alcohol Use: None Substance Use Type: Reports: None Smoking Status (MU): Former Smoker Review of Systems Positive: Chest Pain Positive: Shortness Of Breath Musculoskeletal: Other - neck and spine pain Positive: Edema - and LE pain Neurological: Other - dizziness Positive: Syncope All Other Systems Reviewed And Are Negative: Yes Physical Exam - Summary Physical Exam Summary: Appearance: Well-appearing, Well-nourished, lying in bed comfortably Skin: Warm, dry, no obvious rash Eyes: sclera anicteric, no conjunctival pallor ENT: mucous membranes moist, pharynx appears normal Neck: Supple, nontender Respiratory: Clear to auscultation, no signs of respiratory distress Cardiovascular: Normal S1, S2. No murmurs. Normal distal pulses in tibial and radial bilaterally. Abdomen: Soft, nontender, normal active bowel sounds present Musculoskeletal: bilateral mild pitting edema. Mild asymmetric swelling on the right. Strength/ROM Intact Neurological: A&Ox3, awake and alert, mentation is normal, speech is fluent and appropriate Psychiatric: affect is normal, does not appear anxious or depressed Triage Information Reviewed: Yes Vital Signs On Initial Exam: Initial Vitals Temp Pulse Resp BP Pulse Ox 98.3 F 87 16 103/71 97 07/22/18 15:57 07/22/18 15:57 07/22/18 15:57 07/22/18 15:57 07/22/18 15:57 Vital Signs Reviewed: Yes Diagnostics - Vital Signs Vital Signs Temp Pulse Resp BP Pulse Ox 07/22/18 15:57 98.3 F 87 16 103/71 97 - Laboratory Result Diagrams: 07/22/18 16:44 07/22/18 16:44 Lab Statement: Any lab studies that have been ordered have been reviewed, and results considered in the medical decision making process. - CT CTA Chest CT Interpretation Completed By: Radiologist - 1. No pulmonary embolus. No dissection or aneurysm in the chest. 2. No consolidation, effusion or edema. 3. Moderate coronary artery calcifications. 4. No other acute disease seen. As above. ED physician has reviewed this radiology report. - EKG 1604 Cardiac Rate: NL EKG Rhythm: Sinus Rhythm - NSR at 82 BPM, P waves, QRS complex, and T waves are within normal limits, T waves and intervals are normal, no ischemic changes. This is a normal EKG Course/Dx Course Of Treatment: This is a 53-year-old inmate with a history of chronic DVTs and recurrent bouts of chest pain, dyspnea, and syncope. He was evaluated here fairly carefully, ACS and PE were ruled out with appropriate testing. He is stable to return to alf. - Diagnoses Provider Diagnoses: Chest pain, History of DVT (deep vein thrombosis) Discharge - Sign-Out/Discharge Documenting (check all that apply): Patient Departure - Discharge Plan Condition: Good Disposition: HOME Patient Education Materials: Deep Vein Thrombosis (ED) Referrals: No Primary Care Phys,NOPCP [Primary Care Provider] - - Billing Disposition and Condition Condition: GOOD Disposition: Home - Attestation Statements Document Initiated by Dale: Yes Documenting Scribe: Wilmer Dunham Provider For Whom Armanie is Documenting (Include Credential): Az Tinsley MD Scribe Attestation: Wilmer Pagan , scribed for Az Tinsley MD on 07/23/18 at 1036. Scribe Documentation Reviewed: Yes Provider Attestation: The documentation as recorded by the Wilmer cortez accurately reflects the service I personally performed and the decisions made by me, Az Tinsley MD
[2018-07-22] MEDS ORDERED: HYDROmorphone INJ1* 1 MG/ML SYRINGE ONE (16:55)
[2018-07-22 16:57] LABS: ABS Basophils 0 10^3/ul (0-0.2); ABS Eosinophils 0.1 10^3/ul (0-0.6); ABS Lymphocytes 1.4 10^3/ul (1.0-4.8); ABS Monocytes 0.9 10^3/ul (0-0.8); ABS Neutrophils 4.4 10^3/ul (1.5-7.7); ABS Nucleated RBC 0 10^3/ul; Eosinophil % 1.4 % (0-6); Hematocrit 40 % (42-52); Hemoglobin 12.5 g/dl (14.0-18.0); Lymphocyte % 19.8 % (25-47); Mean Corpuscular HGB Conc 31 g/dl (31-36); Mean Corpuscular Hemoglobin 25 pg (27-31); Mean Corpuscular Volume 79 fL (80-94); Mean Platelet Volume 8.5 um3 (7.4-10.4); Nucleated Red Blood Cells % 0.1; Platelet Count 346 10^3/ul (150-450); Red Blood Count 5.08 10^6/ul (4.00-5.40); Red Cell Distribution Width 20 % (10.5-15); White Blood Count 6.9 10^3/ul (3.5-10.8)
[2018-07-22] MEDS ORDERED: Iohexol 350* (CONTRAST) 500 ML MDV IV ONE (17:21)
--- NOTE | 2018-07-22 18:55 | RAD ---
EXAM: CT Angiography Chest With Intravenous Contrast CLINICAL HISTORY: 53 years old, male; Signs and symptoms; Shortness of breath; Prior surgery; Surgery date: 6+ months; Surgery type: Bilateral shoulder replacement; Additional info: Known chronic dvt, new syncope, cp, dyspnea TECHNIQUE: Axial computed tomographic angiography images of the chest with intravenous contrast using pulmonary embolism protocol. All CT scans at this facility use at least one of these dose optimization techniques: automated exposure control; mA and/or kV adjustment per patient size (includes targeted exams where dose is matched to clinical indication); or iterative reconstruction. MIP reconstructed images were created and reviewed. Coronal and sagittal reformatted images were created and reviewed. CONTRAST: 150 mL of OMNI 350 administered intravenously. COMPARISON: CTA CHEST CTA CHEST 06/05/2018 10:16 PM FINDINGS: Limitations: Limited atherosclerosis. Pulmonary arteries: No pulmonary embolus. No dissection or aneurysm in the chest. Aorta: See above. Lungs: No consolidation, effusion or edema. Pleural space: See above. Heart: Moderate coronary artery calcifications. No significant pericardial effusion. No evidence of RV dysfunction. Bones/joints: Old rib fractures. Bilateral shoulder prostheses. Soft tissues: See above. Lymph nodes: Unremarkable. No enlarged lymph nodes. Spleen: Splenectomy with apparent regenerated splenule's. Other findings: No other acute disease seen. As above. IMPRESSION: 1. No pulmonary embolus. No dissection or aneurysm in the chest. 2. No consolidation, effusion or edema. 3. Moderate coronary artery calcifications. 4. No other acute disease seen. As above. To contact [facility] with a general question: [facility] - [phone] For direct physician to physician contact: Physician Hotline - [phone] [facility] ([facility] Facility ID #[id number])
[2018-07-22 19:06] VITALS: BP 115/83
== END 2018-07-22 19:39 | disposition home or self-care (01) ==
LOC: ED 15:50
DX: R55 Syncope and collapse (principal); R07.9 Chest pain, unspecified; R42 Dizziness and giddiness; R06.02 Shortness of breath; I25.10 Atherosclerotic heart disease of native coronary artery without angina pectoris; I50.9 Heart failure, unspecified; I20.9 Angina pectoris, unspecified; I25.2 Old myocardial infarction; E78.00 Pure hypercholesterolemia, unspecified; J44.9 Chronic obstructive pulmonary disease, unspecified; K21.9 Gastro-esophageal reflux disease without esophagitis; Z87.891 Personal history of nicotine dependence; Z86.718 Personal history of other venous thrombosis and embolism; Z79.01 Long term (current) use of anticoagulants; Z79.899 Other long term (current) drug therapy; Z88.8 Allergy status to other drugs, medicaments and biological substances
CPT/HCPCS: 36415; 71275; 80053; 84484; 85025; 93005; 96374; 99282; J1170; Q9967